=== PATIENT | female | born 1960 | race African-American/Black ===

== ENCOUNTER 2018-12-18 02:21 | Inpatient (IN) | payer OTHER ==
--- NOTE | 2018-12-18 02:40 | PDOC ---
History of Present Illness <TonoSandrita - Last Filed: 12/18/18 05:53> - General History Source: Patient Exam Limitations: No Limitations - History of Present Illness Initial Comments: 12/18/18 02:40 58YOF with h/o lumbago with chronic pain, CHF, CAD with MIx2 and AICD placement , HTN, COPD, NIDDM, anemia, left mastectomy 2/2 breast CA, and GERD who p/w fall from standing at home at about 6 pm. She notes that she is chronically unsteady on her feet d/t her chronic pain and her family member usually need to help her ambulate and do her daily activities. She was walking in the living room, lost her footing, and fell with her right leg behind her and also twisted her left ankle. She notes severe pain to her right hip and groin, and left ankle. She denies hitting her head, hurting her neck, losing consciousness, or otherwise suffering any additional injury. She has not run out of any of her normal home medications. She took Tylenol, gabapentin, and a muscle relaxer tonight after the incident (she normally takes these). She used to live here in [place] but moved to [place] and is currently only visiting family here. <ClarkeSkylar - Last Filed: 12/18/18 06:42> - General Stated Complaint: FALL Time Seen by Provider: 12/18/18 02:27 Past History <PowerSandrita - Last Filed: 12/18/18 05:53> - Past Medical History Anemia: Yes Asthma: Yes Cancer: Yes (left breast) Cardiac Disorders: Yes COPD: Yes Diabetes: Yes HTN: Yes Hypercholesterolemia: Yes - Surgical History Cardiac Surgery: Yes (stent x 1, INTERNAL DEFIB.) - Suicide/Smoking/Psychosocial Hx Smoking Status: No Smoking History: Former smoker Have you smoked in the past 12 months: No Number of Cigarettes Smoked Daily: 0 Hx Alcohol Use: No Drug/Substance Use Hx: No Substance Use Type: None Hx Substance Use Treatment: No <Skylar Clarke - Last Filed: 12/18/18 06:42> - Past Medical History Allergies/Adverse Reactions: Allergies Allergy/AdvReac Type Severity Reaction Status Date / Time prochlorperazine edisylate Allergy Intermediate Swelling Verified 12/18/18 02:51 [From Compazine] prochlorperazine maleate Allergy Intermediate Swelling Verified 12/18/18 02:51 [From Compazine] Home Medications: Ambulatory Orders Aspirin 81 mg PO DAILY 12/13/12 Carvedilol [Coreg] 3.125 mg PO BID 12/13/12 Furosemide [Lasix -] 40 mg PO BID 12/10/14 Omeprazole [Prilosec] 20 mg PO DAILY 12/10/14 Citalopram Hydrobromide [Citalopram HBr] 20 mg PO DAILY 12/18/18 Clonazepam 1 mg PO BID 12/18/18 Gabapentin 600 mg PO BID 12/18/18 Insulin (Levemir) [Levemir Flexpen -] 39 units SQ HS 12/18/18 Nitroglycerin 0.4 mg SL PRN PRN 12/18/18 Rivaroxaban [Xarelto -] 15 mg PO DAILY 12/18/18 Sacubitril/Valsartan [Entresto 24 mg-26 mg Tablet] 1 each PO BID 12/18/18 Spironolactone 12.5 mg PO DAILY 12/18/18 Tizanidine HCl 4 mg PO PRN PRN 12/18/18 Review of Systems - Review of Systems Able to Perform ROS?: Yes Comments:: 12/18/18 03:30 GEN: no fever, chills, malaise, generalized weakness, or weight change HEENT: no ear pain, sore throat, vision change, or eye pain CV: no chest pain, palpitations, lightheadedness, syncope, or edema RESP: no cough, wheezing, or SOB GI: no abdominal pain, nausea, vomiting, diarrhea, constipation, or white/black/ bloody stool : no dysuria, hematuria, incontinence, retention, bleeding, or discharge MSK: right hip and groin pain, left ankle pain NEURO: no headache, seizure, vertigo, numbness, tingling, or focal weakness PSYCH: no substance use, no behavior change SKIN: no jaundice, no rash ROS otherwise negative except as noted in HPI <Skylar Clarke - Last Filed: 12/18/18 06:42> *Physical Exam - Vital Signs Last Vital Signs Temp Pulse Resp BP Pulse Ox 99.0 F 103 H 20 140/77 98 12/18/18 02:30 12/18/18 02:30 12/18/18 02:30 12/18/18 02:30 12/18/18 02:30 <Sandrita Power - Last Filed: 12/18/18 05:53> - Vital Signs Initial Vital Signs Temp Pulse Resp BP Pulse Ox 99.0 F 103 H 20 140/77 98 12/18/18 02:30 12/18/18 02:30 12/18/18 02:30 12/18/18 02:30 12/18/18 02:30 - Physical Exam Comments: GENERAL: nontoxic but uncomfortable appearing, A/Ox4, mild distress at rest and slightly worse when moving lower extremities, answers questions appropriately, obese HEENT: PERRLA, EOMI, moist mucous membranes NECK/BACK: no midline ttp, no spinal stepoff or deformity, no hematoma, full ROM , neck supple CARDIOVASCULAR: regular rate/rhythm, normal S1S2, no MGR, strong peripheral pulses, capillary refill <2 seconds, extremities wwp, no edema LUNGS/RESPIRATORY: no respiratory distress, CTAB GI/ABDOMEN: symmetric [id number], normoactive BS, soft, no ttp, no midline pulsatile masses : no CVA tenderness EXTREMITIES: left lateral ankle ttp and developing ecchymosis/edema, significant pain with ROM, also left hip with moderate ttp overlying greater trochanter and mild pain to inguinal area, otherwise MSK with no muscle atrophy , no acute deformity SKIN: warm and dry, no pallor, no jaundice, no rash, no bruising, no skin breakdown, no cuts, no lesions NEUROLOGICAL: GCS 15, CN II-XII grossly intact, 5/5 strength proximally and distally, no facial droop <Skylar Clarke - Last Filed: 12/18/18 06:42> ED Treatment Course - LABORATORY CBC & Chemistry Diagram: 12/18/18 05:08 12/18/18 05:08 - ADDITIONAL ORDERS Additional order review: Laboratory Results 12/18/18 05:20 Urine Color Yellow Urine Appearance Cloudy Urine pH 5.0 Ur Specific [place] 1.035 Urine Protein Negative Urine Glucose (UA) 3+ H Urine Ketones Trace H Urine Blood Negative Urine Nitrite Negative Urine Bilirubin Negative Urine Urobilinogen 1.0 Ur Leukocyte Esterase Negative 12/18/18 05:08 RBC 3.52 L MCV 94.5 MCHC 33.3 RDW 13.5 D MPV 8.8 Neutrophils % 69.4 D Lymphocytes % 22.5 D Monocytes % 7.3 Eosinophils % 0.4 Basophils % 0.4 - Medications Given in the ED: ED Medications Discontinued Medications Generic Name Dose Route Start Last Admin Trade Name Simon PRN Reason Stop Dose Admin Ketorolac Tromethamine 30 mg 12/18/18 04:34 12/18/18 05:08 Toradol Injection - IM 12/18/18 04:35 Not Given ONCE ONE Morphine Sulfate 2 mg 12/18/18 05:01 12/18/18 05:08 Morphine Injection - IM 12/18/18 05:02 2 mg ONCE ONE Administration <Sandrita Power - Last Filed: 12/18/18 05:53> - LABORATORY CBC & Chemistry Diagram: 12/18/18 05:08 12/18/18 05:08 <Skylar Clarke - Last Filed: 12/18/18 06:42> Medical Decision Making - Medical Decision Making 12/18/18 05:06 58YOF patient p/w GLF with subsequent hip pain and ankle pain. Initial Vital Signs Temp Pulse Resp BP Pulse Ox 99.0 F 103 H 20 140/77 98 12/18/18 02:30 12/18/18 02:30 12/18/18 02:30 12/18/18 02:30 12/18/18 02:30 Exam: As noted in Physical Exam section. DDX IBNLT: most likely sprain/strain or contusion, less likely hip/pelvis/femur knee/ankle fxr, very unlikely hip dislocation, thigh hematoma, compartment syndrome, etc. W/U ordered: Labs as noted below EKG hip and ankle and knee XR NPO until further notice. XR Lt Foot/Ankle: distal spiral fibular fracture, nondisplaced, noncomminuted. XR Rt Hip: nothing acute XR Rt knee: nothing acute Laboratory Tests 12/18/18 12/18/18 12/18/18 05:08 05:08 05:08 WBC 9.6 RBC 3.52 L Hgb 11.1 Hct 33.3 D MCV 94.5 MCH 31.5 MCHC 33.3 RDW 13.5 D Plt Count 278 MPV 8.8 Absolute Neuts (auto) 6.7 Neutrophils % 69.4 D Lymphocytes % 22.5 D Monocytes % 7.3 Eosinophils % 0.4 Basophils % 0.4 Nucleated RBC % 0 Sodium 137 Potassium 4.1 Chloride 105 Carbon Dioxide 22 Anion Gap 10 BUN 16.8 Creatinine 1.4 H Est GFR (CKD-EPI)AfAm 48.56 Est GFR (CKD-EPI)NonAf 41.90 Random Glucose 343 H* Calcium 8.8 Total Bilirubin 0.3 AST 11 L ALT 11 L Alkaline Phosphatase 125 H Creatine Kinase 79 Troponin I < 0.02 B-Natriuretic Peptide 178.6 H Total Protein 7.1 Albumin 3.4 Urine Color Urine Appearance Urine pH Ur Specific [place] Urine Protein Urine Glucose (UA) Urine Ketones Urine Blood Urine Nitrite Urine Bilirubin Urine Urobilinogen Ur Leukocyte Esterase 12/18/18 05:20 WBC RBC Hgb Hct MCV MCH MCHC RDW Plt Count MPV Absolute Neuts (auto) Neutrophils % Lymphocytes % Monocytes % Eosinophils % Basophils % Nucleated RBC % Sodium Potassium Chloride Carbon Dioxide Anion Gap BUN Creatinine Est GFR (CKD-EPI)AfAm Est GFR (CKD-EPI)NonAf Random Glucose Calcium Total Bilirubin AST ALT Alkaline Phosphatase Creatine Kinase Troponin I B-Natriuretic Peptide Total Protein Albumin Urine Color Yellow Urine Appearance Cloudy Urine pH 5.0 Ur Specific [place] 1.035 Urine Protein Negative Urine Glucose (UA) 3+ H Urine Ketones Trace H Urine Blood Negative Urine Nitrite Negative Urine Bilirubin Negative Urine Urobilinogen 1.0 Ur Leukocyte Esterase Negative Reassessment: patient still very painful/tender, Toradol and morphine has been ordered. Vital Signs Temperature 99.0 F 12/18/18 02:30 Pulse Rate 96 H 12/18/18 06:06 Respiratory Rate 20 12/18/18 02:30 Blood Pressure 144/79 12/18/18 06:06 O2 Sat by Pulse Oximetry (%) 99 12/18/18 06:06 12/18/18 05:55 The patient is unable to weight bear d/t pain despite multiple doses analgesics at home and here. She has difficulty even letting us reposition her in bed. Microblog sent to [facility] for admission. Blank Decision to Admit order placed per ED protocol. Spoke with Cassi Linton; in agreement Pt to be admitted. Decision to Admit order corrected with Dr. Pat's name. 12/18/18 06:26 Page sent to on-call orthopedist FARHAT Adame, for Dr. Weber. Consult order placed to Dr. Weber's group. 12/18/18 06:41 I spoke with FARHAT Adame; they will kindly see the patient in the hospital. <Skylar Clarke - Last Filed: 12/18/18 06:42> *DC/Admit/Observation/Transfer - Discharge Dispostion Decision to Admit order: Yes <Sandrita Power - Last Filed: 12/18/18 05:53> - Discharge Dispostion Decision to Admit order: Yes <Skylar Clarke - Last Filed: 12/18/18 06:42> Diagnosis at time of Disposition: Impaired ambulation, Fracture of distal fibula, Knee buckling - Discharge Dispostion Condition at time of disposition: Guarded
--- NOTE | 2018-12-18 03:36 | PDOC ---
Attending Attestation - Resident Resident Name: Skylar Clarke - ED Attending Attestation I have performed the following: I have examined & evaluated the patient, The case was reviewed & discussed with the resident, I agree w/resident's findings & plan - HPI HPI: 12/18/18 05:48 Pt came from [place] 1 week ago for her granddaughter's graduation. Pt cannot walk without assistance. She is overweight. SHe has been unable to ambulate well x 2 years. She needs help doing ADLs. Pt doesn't know why she cannot bear weight well and why she is imbalanced. She was told maybe she had a CVA in the past. Pt also has an AICD that is incompatible with MRI. Pt fell today at home, after showering and walking from her niece's room. - Physicial Exam PE: 12/18/18 05:51 Pt has exquisite tenderness at the medial right knee and at the lateral distal fibula. Pt will be placed in a knee immobilizer on right and a posterior splint on the left lower leg. - Medical Decision Making 12/18/18 05:32 Pt has a minimally displaced spiral fracture of the distal fibula. 12/18/18 05:52 Pt cannot ambulate well at baseline, and now with knee giving out and left fibula fx, she will be admitted for ortho eval; pt may need rehab placement.
[2018-12-18] MEDS ORDERED: KETOROLAC TROMETHAMINE 30 MG/1 ML VIAL IM ONE (04:34)
[2018-12-18] MEDS ORDERED: KETOROLAC TROMETHAMINE 30 MG/1 ML VIAL ONE (04:56)
[2018-12-18] MEDS ORDERED: morphine CARPU-JECT 2 MG/1 ML DISP.SYRIN IM ONE (05:01)
[2018-12-18] MEDS ORDERED: MORPHINE SULFATE 2 MG/ML VIAL ONE (05:04)
[2018-12-18 05:21] LABS: HEMATOCRIT 33.3 % (32.4-45.2)
[2018-12-18 05:33] LABS: URINE APPEARANCE CLOUDY; URINE BILIRUBIN NEGATIVE (NEGATIVE); URINE COLOR YELLOW; URINE GLUCOSE (UA) 3+ (NEGATIVE); URINE KETONE TRACE (NEGATIVE); URINE LEUK ESTERASE NEGATIVE (NEGATIVE); URINE NITRITE NEGATIVE (NEGATIVE); URINE PROTEIN NEGATIVE (NEGATIVE)
[2018-12-18 05:35] LABS: BASO % 0.4 % (0-2.0); EOS % 0.4 % (0-4.5); HEMOGLOBIN 11.1 GM/dL (10.7-15.3); LYMPH % 22.5 % (8-40); MCH 31.5 pg (25.7-33.7); MCHC 33.3 g/dl (32.0-36.0); MEAN CELL VOLUME 94.5 fl (80-96); MEAN PLT VOLUME 8.8 fl (7.5-11.1); MONO % 7.3 % (3.8-10.2); NEUT % 69.4 % (42.8-82.8); PLATELET COUNT 278 K/MM3 (134-434); RBC 3.52 M/mm3 (3.60-5.2); RDW 13.5 % (11.6-15.6); WHITE BLOOD COUNT 9.6 K/mm3 (4.0-10.0)
[2018-12-18 05:58] LABS: ALBUMIN 3.4 g/dl (3.4-5.0); ALK PHOS 125 U/L (45-117); ANION GAP 10 MMOL/L (8-16); BILIRUBIN,TOTAL 0.3 mg/dL (0.2-1); BLOOD UREA NITROGEN 16.8 mg/dL (7-18); CALCIUM 8.8 mg/dL (8.5-10.1); CHLORIDE 105 mmol/L (98-107); CO2 22 mmol/L (21-32); CREATININE 1.4 mg/dL (0.55-1.3); POTASSIUM 4.1 mmol/L (3.5-5.1); SGOT/AST 11 U/L (15-37); SGPT/ALT 11 U/L (13-61); SODIUM 137 mmol/L (136-145); TOT PROT 7.1 g/dl (6.4-8.2)
[2018-12-18 05:59] LABS: GLUCOSE,RANDOM 343 mg/dL (74-106)
[2018-12-18] MEDS ORDERED: oxyCODONE HCL 5 MG TABLET PO PRN ×2 (06:31→10:21)
--- NOTE | 2018-12-18 06:31 | HP ---
CHIEF COMPLAINT: fall/pain PCP: in [place] HISTORY OF PRESENT ILLNESS: Patient is a 58 yo F with a PMHx of Lumbago w chronic pain, S CHF s/p AICD, MN x 2, HTN, DM, Anemia, L masectomy 2/2 breast ca, DVTs, PE (on Xarelto) presented after a mechanical Fall. Patient says she has recurrent falls because of chronic pain and unsteadiness in her lower extremities. She says she was walking in the house yesterday, loss balance, twisted her L ankle and fell. She presented complaining of R hip, groin and L ankle pain. In the ED, X ray revealed a distal spiral fx of the L Fibula. Ortho was called by the ED and agreed to admit the patient. Patient still complains of diffuse pain in her R hip and L ankle. She denies SOB, chest pain, nausea, vomiting, fevers, chills, palpitations, dizziness, cough. ER course was notable for: (1) Spiral fx of L fibula on XRAY (2) Glucose 343 Recent Travel: from [place] PAST MEDICAL HISTORY: per HPI PAST SURGICAL HISTORY: L masectomy 2007 Social History: Smoking: denies. former smoker quit 2006 Alcohol: denies Drugs: denies Family History: Mother HTN, DM Allergies prochlorperazine edisylate [From Compazine] Allergy (Intermediate, Verified 02:51) Swelling prochlorperazine maleate [From Compazine] Allergy (Intermediate, Verified 02:51) Swelling HOME MEDICATIONS: Home Medications Medication Instructions Recorded Aspirin 81 mg PO DAILY 12/13/12 Carvedilol [Coreg] 3.125 mg PO BID 12/13/12 Furosemide [Lasix -] 40 mg PO BID 12/10/14 Omeprazole [Prilosec] 20 mg PO DAILY 12/10/14 Citalopram Hydrobromide 20 mg PO DAILY 12/18/18 [Citalopram HBr] Clonazepam 1 mg PO BID 12/18/18 Gabapentin 600 mg PO BID 12/18/18 Insulin (Levemir) [Levemir Flexpen 10 units SQ BID 12/18/18 -] Nitroglycerin 0.4 mg SL PRN PRN 12/18/18 Rivaroxaban [Xarelto -] 15 mg PO DAILY 12/18/18 Sacubitril/Valsartan [Entresto 24 1 each PO BID 12/18/18 mg-26 mg Tablet] Spironolactone 12.5 mg PO DAILY 12/18/18 Tizanidine HCl 4 mg PO PRN PRN 12/18/18 REVIEW OF SYSTEMS CONSTITUTIONAL: Absent: fever, chills, diaphoresis, generalized weakness, malaise, loss of appetite, weight change HEENT: Absent: rhinorrhea, nasal congestion, throat pain, throat swelling, difficulty swallowing, mouth swelling, ear pain, eye pain, visual changes CARDIOVASCULAR: Absent: chest pain, syncope, palpitations, irregular heart rate, lightheadedness , peripheral edema RESPIRATORY: Absent: cough, shortness of breath, dyspnea with exertion, orthopnea, wheezing, stridor, hemoptysis GASTROINTESTINAL: Absent: abdominal pain, abdominal distension, nausea, vomiting, diarrhea, constipation, melena, hematochezia GENITOURINARY: Absent: dysuria, frequency, urgency, hesitancy, hematuria, flank pain, genital pain MUSCULOSKELETAL: back pain Absent: myalgia, arthralgia, joint swelling, neck pain SKIN: Absent: rash, itching, pallor HEMATOLOGIC/IMMUNOLOGIC: Absent: easy bleeding, easy bruising, lymphadenopathy, frequent infections ENDOCRINE: Absent: unexplained weight gain, unexplained weight loss, heat intolerance, cold intolerance NEUROLOGIC: Absent: headache, focal weakness or paresthesias, dizziness, unsteady gait, seizure, mental status changes, bladder or bowel incontinence PSYCHIATRIC: Absent: anxiety, depression, suicidal or homicidal ideation, hallucinations. PHYSICAL EXAMINATION Vital Signs - 24 hr 12/18/18 12/18/18 02:30 06:06 Temperature 99.0 F Pulse Rate 103 H Pulse Rate [ 96 H Radial] Respiratory 20 Rate Blood Pressure 140/77 Blood Pressure 144/79 [Right Arm] O2 Sat by Pulse 98 99 Oximetry (%) GENERAL: Awake, alert, and fully oriented, in no acute distress. EYES: Pupils equal, round and reactive to light, extraocular movements intact, sclera anicteric, conjunctiva clear. EARS, NOSE, THROAT: oropharynx clear without exudates. Moist mucous membranes. NECK:supple without lymphadenopathy, JVD, or masses. LUNGS: Breath sounds equal, clear to auscultation bilaterally. No wheezes, and no crackles. HEART: Regular rate and rhythm, normal S1 and S2 without murmur, rub or gallop. ABDOMEN: Soft, nontender, not distended, normoactive bowel sounds, no guarding, no rebound, no masses. MUSCULOSKELETAL: Restricted ROM in LLE. especially near L ankle. patient says she is unable to move her Leg due to pain. Refusing different tests. diffuse tenderness to palpation. Brace placed on RLE. UPPER EXTREMITIES: 2+ pulses, warm, well-perfused. No peripheral edema. LOWER EXTREMITIES: 2+ pulses, warm, well-perfused. NEUROLOGICAL: Cranial nerves II-XII intact. . Laboratory Results - last 24 hr 12/18/18 12/18/18 12/18/18 05:08 05:08 05:08 WBC 9.6 RBC 3.52 L Hgb 11.1 Hct 33.3 D MCV 94.5 MCH 31.5 MCHC 33.3 RDW 13.5 D Plt Count 278 MPV 8.8 Absolute Neuts (auto) 6.7 Neutrophils % 69.4 D Lymphocytes % 22.5 D Monocytes % 7.3 Eosinophils % 0.4 Basophils % 0.4 Nucleated RBC % 0 Sodium 137 Potassium 4.1 Chloride 105 Carbon Dioxide 22 Anion Gap 10 BUN 16.8 Creatinine 1.4 H Est GFR (CKD-EPI)AfAm 48.56 Est GFR (CKD-EPI)NonAf 41.90 Random Glucose 343 H* Calcium 8.8 Total Bilirubin 0.3 AST 11 L ALT 11 L Alkaline Phosphatase 125 H Creatine Kinase 79 Troponin I < 0.02 B-Natriuretic Peptide 178.6 H Total Protein 7.1 Albumin 3.4 Urine Color Urine Appearance Urine pH Ur Specific [place] Urine Protein Urine Glucose (UA) Urine Ketones Urine Blood Urine Nitrite Urine Bilirubin Urine Urobilinogen Ur Leukocyte Esterase 12/18/18 05:20 WBC RBC Hgb Hct MCV MCH MCHC RDW Plt Count MPV Absolute Neuts (auto) Neutrophils % Lymphocytes % Monocytes % Eosinophils % Basophils % Nucleated RBC % Sodium Potassium Chloride Carbon Dioxide Anion Gap BUN Creatinine Est GFR (CKD-EPI)AfAm Est GFR (CKD-EPI)NonAf Random Glucose Calcium Total Bilirubin AST ALT Alkaline Phosphatase Creatine Kinase Troponin I B-Natriuretic Peptide Total Protein Albumin Urine Color Yellow Urine Appearance Cloudy Urine pH 5.0 Ur Specific [place] 1.035 Urine Protein Negative Urine Glucose (UA) 3+ H Urine Ketones Trace H Urine Blood Negative Urine Nitrite Negative Urine Bilirubin Negative Urine Urobilinogen 1.0 Ur Leukocyte Esterase Negative ASSESSMENT/PLAN: 58 yo F with a PMHx of Lumbago w chronic pain, S CHF s/p AICD, MN x 2, HTN, DM, Anemia, L masectomy 2/2 breast ca, DVTs, PE (on Xarelto) presented after a mechanical Fall. #L Fibula Spiral Fx s/p Mechanical Fall -not suspicious for pre-syncope/syncope -Ortho consulted: Dr. Weber -NPO. Change Diet if no sx -PT/INR, type and screen -pain control w/ Percocet PRN -held AM dose of ASA, Xarelto if decision of sx is made. CONTINUE if no surgery planned. -PT #Uncontrolled DM -patient says her recent A1c is 11 (last week in [place]). She says it improved from before. -BGM -cont Levemir 39 U at night. -Patient also takes 10 Humalog TID which is held. -SSI #S CHF -says her EF is <25% -not in exacerbation -cont home meds. Coreg 3.25 BID, entresto, spironolactone 12.5 #Hx of PE, DVTs -on xarelto 15mg -WILL hold AM dose. Restart if no surgical intervention planned -Cont Lasix 40mg BID #HTN/CAD -HELD ASA 81mg. -cont if no sx intervention planned #Dvt ppx -SCDs #FEN -no iv fluids -monitor -NPO for now dispo: med-surge Visit type - Emergency Visit Emergency Visit: Yes ED Registration Date: 12/18/18 Care time: The patient presented to the Emergency Department on the above date and was hospitalized for further evaluation of their emergent condition. - New Patient This patient is new to me today: Yes Date on this admission: 12/24/18 - Critical Care Critical Care patient: No
--- NOTE | 2018-12-18 06:45 | PN ---
Teaching Attending Note Name of Resident: Yomaira Linton ATTENDING PHYSICIAN STATEMENT I saw and evaluated the patient. I reviewed the resident's note and discussed the case with the resident. I agree with the resident's findings and plan as documented. SUBJECTIVE: Seen and examined; please refer to resident note for further historical information. Briefly, this is a 58 y/o female with a complex PMH who [place] out of state and is in town for family event presents to ER following a fall that appears mechanical (she is, per the patient, constantly unsteady on her feet and this was resultant from such an issue). She denies any presyncopal or syncopal elements and denies any LOC, visual changes, mental status changes, etc. No focal neuro sx. She was found to have a spiral fx of the R-fibula in the ER and was placed in knee immobilizer. Orthopedic consultation pending. She was given a 1x dose of oxycodone; medicine was asked to admit for intractable pain, inability to ambulate. 10 sys ROS done and negative aside from HPI PMH, PSH, FH, SH reviewed Home Medications Medication Instructions Recorded Aspirin 81 mg PO DAILY 12/13/12 Carvedilol [Coreg] 3.125 mg PO BID 12/13/12 Furosemide [Lasix -] 40 mg PO BID 12/10/14 Omeprazole [Prilosec] 20 mg PO DAILY 12/10/14 Citalopram Hydrobromide 20 mg PO DAILY 12/18/18 [Citalopram HBr] Clonazepam 1 mg PO BID 12/18/18 Gabapentin 600 mg PO BID 12/18/18 Insulin (Levemir) [Levemir Flexpen 39 units SQ HS 12/18/18 -] Nitroglycerin 0.4 mg SL PRN PRN 12/18/18 Rivaroxaban [Xarelto -] 15 mg PO DAILY 12/18/18 Sacubitril/Valsartan [Entresto 24 1 each PO BID 12/18/18 mg-26 mg Tablet] Spironolactone 12.5 mg PO DAILY 12/18/18 Tizanidine HCl 4 mg PO PRN PRN 12/18/18 OBJECTIVE: VS, labs, imaging reviewed Normal mood, appropriate behavior NC AT EOMI PERRLA Lungs CTAB, w/ sym exp Knee in immobilizer; no swelling, +pulses PT/DP and neurovascularly intact CN2-12 wnl, no fnd Normal mood, appropriate behavior EKG reviewed XRs reviewed; discussed with ER MD. Awaiting final report ASSESSMENT AND PLAN: Patient presents with: 1) Fall 2) Spiral fx fibula She will be admitted to the medicine service for pain control and orthopedic assessment. Due to positioning we can consider checking sitting/lying orthostatic VS, but if + would be very cautious with fluids given her poor cardiovascular status. Treatment of the fx deferred entirely to orthopedics but do agree with knee immobilizer. She is unsteady and very well may need rehab but must consider that she is out of state. Should discuss with her and her family regarding overall wishes for this; her instability is chronic. May be worthwhile to discuss with her home physicians. In terms of the fall, it wasn't syncope/presyncope. I don't see a need to emergently interrogate her pacemaker. From what she described, it was resultant from her chronic symptoms. We will place her on fall precautions, etc. Her chronic problems include -DVT
[2018-12-18] MEDS ORDERED: INSULIN (NOVOLOG) ASPART 100 UNITS/ML 10ML VIAL ONE (06:59)
[2018-12-18] MEDS: INSULIN SLIDING SCALE (NOVOLOG) 1 VIAL SQ SCH ×3 (07:03→17:15)
[2018-12-18] MEDS ORDERED: FUROSEMIDE 40 MG TABLET (FP) ONE (08:11)
[2018-12-18] MEDS: FUROSEMIDE 40 MG TABLET (FP) PO SCH ×2 (08:14→14:42)
[2018-12-18] MEDS: GABAPENTIN 300 MG CAPSULE (FP) PO SCH ×2 (09:31→21:40)
[2018-12-18] MEDS: PANTOPRAZOLE 20 MG TABLET (FP) PO SCH (09:31)
[2018-12-18] MEDS: CARVEDILOL 3.125 MG TABLET (FP) PO SCH ×2 (09:33→21:40)
[2018-12-18] MEDS: SPIRONOLACTONE 25 MG TABLET (FP) PO SCH (09:33)
[2018-12-18 10:00] LABS: INR 1.01 (0.83-1.09); PROTHROMBIN TIME (PATIENT) 11.9 SEC (9.7-13.0)
[2018-12-18] MEDS ORDERED: oxyCODONE HCL 5 MG TABLET PO ONE (10:20)
--- NOTE | 2018-12-18 10:22 | HOSP ---
Subjective - Review of Symptoms Subjective: c/o pain not improving with pain medications. states both legs hurt but the L leg is worse than the R. had cardiac cath about 2 years ago, did see a blockage but was medically managed and no stent was placed. denies Cp, SOB, fever, chills , N/V/C/D Current Medications Generic Name Dose Route Start Last Admin Trade Name Freq PRN Reason Stop Dose Admin Carvedilol 3.125 mg 12/18/18 10:00 12/18/18 09:33 Coreg - PO 3.125 mg BID [facility] Administration Citalopram Hydrobromide 20 mg 12/18/18 10:00 Celexa - PO DAILY [facility] Furosemide 40 mg 12/18/18 07:15 12/18/18 08:14 Lasix - PO 40 mg BIDLASIX [facility] Administration Gabapentin 600 mg 12/18/18 10:00 12/18/18 09:31 Neurontin - PO 600 mg BID [facility] Administration Insulin Aspart 1 vial 12/18/18 06:45 12/18/18 07:03 Novolog Vial Sliding Scale - SQ 8 units Q6HPO [facility] Administration Protocol Insulin Detemir 39 units 12/18/18 22:00 Levemir Vial SQ HS [facility] Oxycodone HCl 5 mg 12/18/18 10:20 Roxicodone - PO 12/18/18 10:21 ONCE ONE Oxycodone HCl 10 mg 12/18/18 10:21 Roxicodone - PO Q4H PRN PAIN LEVEL 6-10 Pantoprazole Sodium 20 mg 12/18/18 10:00 12/18/18 09:31 Protonix - PO 20 mg DAILY [facility] Administration Sacubitril/Valsartan 1 tab 12/18/18 10:00 Entresto 24 Mg-26 Mg Tablet PO BID [facility] Spironolactone 12.5 mg 12/18/18 10:00 12/18/18 09:33 Aldactone - PO 12.5 mg DAILY [facility] Administration Last Vital Signs Temp Pulse Resp BP Pulse Ox 98.3 F 96 H 18 128/69 98 12/18/18 09:24 12/18/18 09:24 12/18/18 09:24 12/18/18 09:24 12/18/18 08:22 General tearful due to pain CV S1 S2 RRR +murmur lungs CTA B/L no wheezing/rales/rhonchi Abdomen soft NT/ND obese Extremities LLE pain and swelling A/P 58YOF with h/o lumbago with chronic pain, CHF, CAD with MIx2 and AICD placement , HTN, COPD, NIDDM, anemia, left mastectomy 2/2 breast CA, and GERD who p/w fall from standing at home and found to have a distal fibula fracture 1. L Distal fibular fracture- due to mechanical fall. will place splint on leg and will need to be NWB and have imaging done in the future and then determine if surgery will b necessary pending how it heals. in the meantime will need to control pain. increase to morphine 4mg IV prn and po percocet and inform will try to wean off IV medication for pain as tolerated. will need PT assessment to show how to ambulate on crutches prior to leaving. 2. DIA vs CKD- unknown baseline. last hospitalization Cr was 1.3 and this may be baseline. hesitant to give IVF with reports her severe systolic CHF. will continue with meds for now and evaluate if medications need to be adjusted. already received this AM medication 3. DM- uncontrolled but as per pt has been improving with medication adjustment. cont with BGM and iss 4. Systolic CHF s/p AICD- cont home management 5. CAD- with residual disease, with recent cath that was not amenable to stenting. cont with treatment 6. breast ca- outpatient management 7. DVT ppx- start hep sq 8. will need to control pain and ensure patient is able to ambulate with crutches prior to discharge Physical Examination Vital Signs: Vital Signs Temperature 98.3 F 12/18/18 09:24 Pulse Rate 96 H 12/18/18 09:24 Respiratory Rate 18 12/18/18 09:24 Blood Pressure 128/69 12/18/18 09:24 O2 Sat by Pulse Oximetry (%) 98 12/18/18 08:22 Labs: CBC, BMP 12/18/18 05:08 12/18/18 05:08
[2018-12-18] MEDS ORDERED: morphine CARPU-JECT 4 MG/1 ML DISP.SYRIN IVPUSH PRN (10:26)
[2018-12-18] MEDS: SACUBITRIL/VALSARTAN 24 MG-26 MG TABLET PO SCH ×2 (12:00→21:40)
[2018-12-18] MEDS: CITALOPRAM HYDROBROMIDE 20 MG TABLET (FP) PO SCH (12:00)
[2018-12-18] MEDS: morphine SULFATE 4 MG/ML VIAL IVPUSH PRN ×3 (12:12→21:50)
[2018-12-18] MEDS ORDERED: PT OWN MED DRAWER 7, Y5N ONE ×2 (13:09→21:35)
--- NOTE | 2018-12-18 14:02 | CON.ORTH ---
Consult Reason for Consultation:: left ankle fx, right knee pain s/p fall - Past Medical History ...LMP: 02/03/08 ...: No - Alcohol/Substance Use Hx Alcohol Use: No - Smoking History Smoking history: Former smoker Have you smoked in the past 12 months: No Aproximately how many cigarettes per day: 0 Home Medications - Allergies Allergies/Adverse Reactions: Allergies Allergy/AdvReac Type Severity Reaction Status Date / Time prochlorperazine edisylate Allergy Intermediate Swelling Verified 12/18/18 02:51 [From Compazine] prochlorperazine maleate Allergy Intermediate Swelling Verified 12/18/18 02:51 [From Compazine] - Home Medications Home Medications: Ambulatory Orders Aspirin 81 mg PO DAILY 12/13/12 Carvedilol [Coreg] 3.125 mg PO BID 12/13/12 Furosemide [Lasix -] 40 mg PO BID 12/10/14 Omeprazole [Prilosec] 20 mg PO DAILY 12/10/14 Citalopram Hydrobromide [Citalopram HBr] 20 mg PO DAILY 12/18/18 Clonazepam 1 mg PO BID 12/18/18 Gabapentin 600 mg PO BID 12/18/18 Insulin (Levemir) [Levemir Flexpen -] 39 units SQ HS 12/18/18 Nitroglycerin 0.4 mg SL PRN PRN 12/18/18 Rivaroxaban [Xarelto -] 15 mg PO DAILY 12/18/18 Sacubitril/Valsartan [Entresto 24 mg-26 mg Tablet] 1 each PO BID 12/18/18 Spironolactone 12.5 mg PO DAILY 12/18/18 Tizanidine HCl 4 mg PO PRN PRN 12/18/18 Family Disease History - Family Disease History Family Disease History: Heart Disease: Mother (PR) Physical Exam for Ortho Vital Signs: Vital Signs Temperature 98.3 F 12/18/18 09:24 Pulse Rate 96 H 12/18/18 09:24 Respiratory Rate 18 12/18/18 09:24 Blood Pressure 128/69 12/18/18 09:24 O2 Sat by Pulse Oximetry (%) 98 12/18/18 08:22 Labs: CBC, BMP 12/18/18 05:08 12/18/18 05:08 INR, PTT INR 1.01 (0.83-1.09) 12/18/18 08:30 - Lower Extremity Knee: Yes: Right, Pain, Other (minimal swelling, + ttp , rom 0-80, calf soft, nt , nvi) Ankle: Yes: Left, Limited ROM, Pain, Swelling, Tenderness, Other (nvi) Imaging - Results X-ray: Report Reviewed, Image Reviewed Assessment/Plan 58 yo F with a PMHx of chronic pain, S CHF s/p AICD, PR x 2, HTN, DM, Anemia, L masectomy 2/2 breast ca, DVTs, PE (on Xarelto) presented after a mechanical Fall. Patient says she has recurrent falls because of chronic pain and unsteadiness in her lower extremities. She says she was walking in the house yesterday, loss balance, twisted her L ankle and fell. She presented complaining of R hip, groin and L ankle pain. In the ED, X ray revealed a distal spiral fx of the L Fibula. She was a limited ambulator prior to fall. Pt is visiting from [place]. a/p- left nondisplaced distal fibula, right knee contusion No surgical intervention at this time well padded splint applied to left ankle strict elevation PT eval, NWB LLE, WBAT RLE pain control ok to d/c from ortho pov f/u in the office next week d/w Dr. Hendrickson
[2018-12-18] MEDS: HEPARIN NA (PORCINE) 5,000 UNITS/ML 1ML VIAL SQ SCH ×2 (14:43→21:40)
[2018-12-18] MEDS: oxyCODONE HCL 5 MG TABLET PO PRN (14:45)
[2018-12-18] MEDS: INSULIN (LEVEMIR) 100 UNITS/ML UNITS SQ SCH (21:41)
[2018-12-19] MEDS: INSULIN SLIDING SCALE (NOVOLOG) 1 VIAL SQ SCH ×4 (00:21→17:00)
[2018-12-19] MEDS: oxyCODONE HCL 5 MG TABLET PO PRN ×4 (01:27→20:15)
[2018-12-19] MEDS: morphine SULFATE 4 MG/ML VIAL IVPUSH PRN ×2 (06:08→22:29)
[2018-12-19] MEDS: FUROSEMIDE 40 MG TABLET (FP) PO SCH ×2 (06:09→13:45)
[2018-12-19] MEDS: HEPARIN NA (PORCINE) 5,000 UNITS/ML 1ML VIAL SQ SCH (06:09)
[2018-12-19 07:43] LABS: BASO % 0.4 % (0-2.0); EOS % 1.1 % (0-4.5); HEMATOCRIT 31.6 % (32.4-45.2); HEMOGLOBIN 10.6 GM/dL (10.7-15.3); LYMPH % 26.2 % (8-40); MCH 31.6 pg (25.7-33.7); MCHC 33.5 g/dl (32.0-36.0); MEAN CELL VOLUME 94.4 fl (80-96); MEAN PLT VOLUME 8.9 fl (7.5-11.1); MONO % 7.6 % (3.8-10.2); NEUT % 64.7 % (42.8-82.8); RBC 3.35 M/mm3 (3.60-5.2); RDW 13.4 % (11.6-15.6); WHITE BLOOD COUNT 7.3 K/mm3 (4.0-10.0)
[2018-12-19 08:12] LABS: ALBUMIN 3.3 g/dl (3.4-5.0); BILIRUBIN,TOTAL 0.6 mg/dL (0.2-1); BLOOD UREA NITROGEN 17.8 mg/dL (7-18); CALCIUM 8.8 mg/dL (8.5-10.1); CREATININE 0.9 mg/dL (0.55-1.3); MAGNESIUM 1.9 mg/dL (1.8-2.4); PHOSPHOROUS 4.2 mg/dL (2.5-4.9); POTASSIUM 3.7 mmol/L (3.5-5.1)
[2018-12-19 08:52] LABS: PLATELET COUNT 259 K/MM3 (134-434)
[2018-12-19] MEDS ORDERED: PT OWN MED DRAWER 7, Y5N ONE (09:13)
[2018-12-19] MEDS: GABAPENTIN 300 MG CAPSULE (FP) PO SCH ×2 (09:17→21:04)
[2018-12-19] MEDS: PANTOPRAZOLE 20 MG TABLET (FP) PO SCH (09:17)
[2018-12-19] MEDS: SPIRONOLACTONE 25 MG TABLET (FP) PO SCH (09:17)
[2018-12-19] MEDS: CARVEDILOL 3.125 MG TABLET (FP) PO SCH ×2 (09:17→21:04)
[2018-12-19] MEDS: SACUBITRIL/VALSARTAN 24 MG-26 MG TABLET PO SCH ×2 (09:18→21:05)
[2018-12-19] MEDS: CITALOPRAM HYDROBROMIDE 20 MG TABLET (FP) PO SCH (09:18)
[2018-12-19] MEDS ORDERED: RIVAROXABAN 20 MG TABLET PO SCH (10:00)
[2018-12-19] MEDS: ASPIRIN 81 MG CHEWABLE TABLETS PO SCH (10:10)
--- NOTE | 2018-12-19 10:12 | PN ---
Physical Exam: SUBJECTIVE: Patient seen and examined at bedside. Last night required 10mg roxicodone, 4mg morphine for pain control. Today, c/o generalized pain in LLE. OBJECTIVE: Vital Signs Period Temp Pulse Resp BP Sys/Massey Pulse Ox Last 24 Hr 98.4 F-98.5 F 91-92 14-20 98-124/51-70 98 GENERAL: The patient is AAO x3. in NAD HEAD: Normal with no signs of trauma. EYES: PERRL, extraocular movements intact, sclera anicteric, conjunctiva clear. ENT: Ears normal, nares patent, oropharynx clear without exudates, moist mucous membranes. NECK: Trachea midline,supple. LUNGS: Breath sounds equal, clear to auscultation bilaterally, no wheezes, no crackles, no accessory muscle use. HEART: Regular rate and rhythm, S1, S2 without murmur, rub or gallop. ABDOMEN: Soft, obese, nontender, nondistended, normoactive bowel sounds EXTREMITIES: +LLE - splinted, wrapped. elevated NEUROLOGICAL: Cranial nerves II through XII grossly intact. PSYCH: Normal mood, normal affect. SKIN: Warm, dry, normal turgor Laboratory Results 12/19/18 12/19/18 12/19/18 06:01 06:30 06:30 WBC 7.3 Hgb 10.6 L Hct 31.6 L Plt Count 259 Sodium 139 Potassium 3.7 Chloride 107 Carbon Dioxide 25 POC Glucometer 192 Random Glucose 180 H Calcium 8.8 AST 10 L ALT 12 L Alkaline Phosphatase 129 H Albumin 3.3 L ASSESSMENT/PLAN: 58 y/o F with PMH lumbago with chronic pain, systolic CHF, CAD, NV x 2, s/p ICD , COPD, IDDM, anemia, L mastectomy 2/2 breast CA, GERD, hx PE/DVT who presented to the ED for fall at home and was found to have a L distal fibular fx. #L distal fibular fx s/p fall -as per ortho, no sx intervention at this time -c/w padded splint on L ankle, elevation, NWB LLE. WBAT RLE -awaiting PT eval to determine subacute rehab status. d/w case management pt from [place]. Would like to return if possible but amenable to [facility] in area if needed -pain control: morphine 4mg IVP q4h PRN, roxicodone 10mg PO q4h PRN. wean off IV meds #IDDM -c/w levemir 39u sq qHS -ISS, BGM ACHS #systolic CHF s/p ICD -EF 2014 21.8% -c/w coreg, lasix, entresto, aldactone #CAD, MIx2 -c/w asa #COPD -currently not in exacerbation -can add nebs if needed #GERD -c/w protonix #hx DVT/PE -c/w xarelto as pt not for surgical intervention at this time. #DIA vs. CKD - resolved #F/E/N avoid IVF as systolic CHF continue to follow lytes diabetic/sodium controlled diet #PPX DVT: on xarelto GI: on protonix #Dispo cont'd monitoring on med-surg awaiting PT eval, determination of subacute rehab. pt would like to stay in [place] for [facility] however is amenable to staying in [facility] based on my discussion. await CM Visit type - Emergency Visit Emergency Visit: No - New Patient This patient is new to me today: Yes Date on this admission: 12/19/18 - Critical Care Critical Care patient: No
--- NOTE | 2018-12-19 11:20 | PN ---
Teaching Attending Note Name of Resident: Adriana Virk ATTENDING PHYSICIAN STATEMENT I saw and evaluated the patient. I reviewed the resident's note and discussed the case with the resident. I agree with the resident's findings and plan as documented. SUBJECTIVE:states pain is controlled with current pain regimen. states she been very weak at home and does not feel like she will be able to manage with crutches. denies CP, SOB, fever, chills, N/V/C/D OBJECTIVE: Last Vital Signs Temp Pulse Resp BP Pulse Ox 98.5 F 91 H 15 124/70 98 12/19/18 07:43 12/19/18 09:22 12/19/18 09:22 12/19/18 09:22 12/18/18 21:00 General NAD CV S1 S2 RRR +murmur lungs CTA B/L no wheezing/rales/rhonchi Abdomen soft NT/ND obese Extremities LLE pain in soft cast A/P 58YOF with h/o lumbago with chronic pain, CHF, CAD with MIx2 and AICD placement , HTN, COPD, NIDDM, anemia, left mastectomy 2/2 breast CA, and GERD who p/w fall from standing at home and found to have a distal fibula fracture 1. L Distal fibular fracture- due to mechanical fall. splint in place. will need NWB for several weeks then follow up with ortho for repeat imaging to assess if healing ok. due to generalized weakness which patient has been using multiple people to help her ambulate prior to this event will unlikely be able to manage on crutches going forward. will benefit from [facility] which patient is agreeable. will d/w SW. in meantime discussed pain plan with patient to utilize less IV pain medication over the next 24H.official PT eval tomorrow as it is a weekend 2. DIA -now resolved. 3. DM- uncontrolled but as per pt has been improving with medication adjustment. cont with BGM and iss 4. Systolic CHF s/p AICD- cont home management 5. CAD- with residual disease, with recent cath that was not amenable to stenting. cont with treatment 6. breast ca- outpatient management 7. Hx of DVT- on xarelto. as per pt needs lifelong anticoagulation 8. breast ca s/o L masectomy 9. DVT ppx- xarelto 10. PT assessment. will need [facility] on discharge
[2018-12-19] MEDS ORDERED: INSULIN (NOVOLOG) ASPART 100 UNITS/ML 10ML VIAL ONE (11:30)
[2018-12-19] MEDS: RIVAROXABAN 15 MG TABLET PO SCH (17:00)
[2018-12-19] MEDS: INSULIN (LEVEMIR) 100 UNITS/ML UNITS SQ SCH (21:06)
--- NOTE | 2018-12-20 00:29 | EKG ---
Test Reason : Blood Pressure : / mmHG Vent. Rate : 098 BPM Atrial Rate : 098 BPM P-R Int : 154 ms QRS Dur : 088 ms QT Int : 396 ms P-R-T Axes : 045 -41 082 degrees QTc Int : 505 ms NORMAL SINUS RHYTHM LEFT AXIS DEVIATION SEPTAL INFARCT , AGE UNDETERMINED PROLONGED QT ABNORMAL ECG WHEN COMPARED WITH ECG OF 11-DEC-2014 03:50, PREMATURE VENTRICULAR COMPLEXES ARE NO LONGER PRESENT SEPTAL INFARCT IS NOW PRESENT Confirmed by MD Deon, Micky ([id number]) on 12/20/2018 12:29:00 AM Referred By: Confirmed By:Micky Chavarria MD
[2018-12-20] MEDS: INSULIN SLIDING SCALE (NOVOLOG) 1 VIAL SQ SCH ×4 (00:42→18:05)
[2018-12-20] MEDS: oxyCODONE HCL 5 MG TABLET PO PRN ×4 (05:34→21:01)
[2018-12-20] MEDS: FUROSEMIDE 40 MG TABLET (FP) PO SCH ×2 (05:35→13:15)
[2018-12-20] MEDS: morphine SULFATE 4 MG/ML VIAL IVPUSH PRN ×2 (07:05→11:09)
--- NOTE | 2018-12-20 08:39 | PN ---
Progress Note (short form) - Note Progress Note: Ortho Pt seen and examined s/p left distal fibula fx, right knee contusion. Right knee is feeling much better. Selected Entries 12/20/18 05:20 Temperature 98.8 F Pulse Rate 90 Respiratory 18 Rate Blood Pressure 90/54 L right knee- no swelling, minimal ttp, incr rom, nvi left ankle-splint intact, nvi a/p PT eval NWB LLE WBAT RLE elevation ok to d/c from ortho pov SNF placement f/u in 7- for repeat xrays
[2018-12-20] MEDS ORDERED: PT OWN MED DRAWER 7, Y5N ONE (10:01)
[2018-12-20] MEDS: CARVEDILOL 3.125 MG TABLET (FP) PO SCH ×2 (10:02→21:01)
[2018-12-20] MEDS: GABAPENTIN 300 MG CAPSULE (FP) PO SCH ×2 (10:02→21:01)
[2018-12-20] MEDS: ASPIRIN 81 MG CHEWABLE TABLETS PO SCH (10:03)
[2018-12-20] MEDS: PANTOPRAZOLE 20 MG TABLET (FP) PO SCH (10:05)
[2018-12-20] MEDS: SPIRONOLACTONE 25 MG TABLET (FP) PO SCH (11:13)
[2018-12-20] MEDS: SACUBITRIL/VALSARTAN 24 MG-26 MG TABLET PO SCH ×2 (11:16→21:04)
[2018-12-20] MEDS: CITALOPRAM HYDROBROMIDE 20 MG TABLET (FP) PO SCH (11:17)
[2018-12-20] MEDS ORDERED: INSULIN (NOVOLOG) ASPART 100 UNITS/ML 10ML VIAL ONE (12:51)
--- NOTE | 2018-12-20 14:50 | PN ---
Teaching Attending Note Name of Resident: Lupe Guzman ATTENDING PHYSICIAN STATEMENT I saw and evaluated the patient. I reviewed the resident's note and discussed the case with the resident. I agree with the resident's findings and plan as documented. SUBJECTIVE:states pain is being controlled by current pain regimen. denies CP, SOB, fever, chills, N/v/C/D OBJECTIVE: Last Vital Signs Temp Pulse Resp BP Pulse Ox 98.8 F 93 H 18 116/58 L 98 12/20/18 14:16 12/20/18 14:16 12/20/18 14:16 12/20/18 14:16 12/20/18 09:00 General NAD Extremities LLE pain in soft cast A/P 58YOF with h/o lumbago with chronic pain, CHF, CAD with MIx2 and AICD placement , HTN, COPD, NIDDM, anemia, left mastectomy 2/2 breast CA, and GERD who p/w fall from standing at home and found to have a distal fibula fracture 1. L Distal fibular fracture- due to mechanical fall. splint in place. will need NWB for several weeks then follow up with ortho for repeat imaging to assess if healing ok. due to generalized weakness which patient has been using multiple people to help her ambulate prior to this event will unlikely be able to manage on crutches/RW going forward. will benefit from [facility] which patient is agreeable. pain improving. will need outpatient workup to determine cause of pathological fracture 2. DIA -now resolved. 3. DM- uncontrolled but as per pt has been improving with medication adjustment. overall improved. cont with BGM and iss 4. Systolic CHF s/p AICD- cont home management 5. CAD- with residual disease, with recent cath that was not amenable to stenting. cont with treatment 6. breast ca- outpatient management 7. Hx of DVT- on xarelto. as per pt needs lifelong anticoagulation 8. breast ca s/o L masectomy 9. DVT ppx- xarelto 10. will need [facility]. MATT to be sent today. will await bed availability and auth. medically optimized for discharge
--- NOTE | 2018-12-20 15:07 | PN ---
Physical Exam: SUBJECTIVE: Patient seen and examined at bedside. pt expressed some pain in the L ankle. pt stated that pain is improving. OBJECTIVE: Vital Signs Period Temp Pulse Resp BP Sys/Massey Pulse Ox Last 24 Hr 98.8 F-99.3 F 90-99 16-20 90-124/50-70 98-98 GENERAL: The patient is awake, alert, and fully oriented, in no acute distress. LUNGS: Breath sounds equal, clear to auscultation bilaterally, no wheezes, no crackles, no accessory muscle use. HEART: Regular rate and rhythm, S1, S2 without murmur ABDOMEN: Soft, nontender, nondistended, normoactive bowel sounds EXTREMITIES: 2+ pulses, warm, well-perfused, no edema, L leg in splint PSYCH: Normal mood, normal affect. SKIN: Warm, dry, normal turgor, no rashes or lesions noted Laboratory Results - last 24 hr 12/19/18 12/19/18 12/20/18 16:20 20:55 00:39 POC Glucometer 212 220 236 12/20/18 12/20/18 05:38 12:01 POC Glucometer 130 198 Active Medications Aspirin (Asa -) 81 mg PO DAILY [facility] Last Admin: 12/20/18 10:03 Dose: 81 mg Carvedilol (Coreg -) 3.125 mg PO BID [facility] Last Admin: 12/20/18 10:02 Dose: 3.125 mg Citalopram Hydrobromide (Celexa -) 20 mg PO DAILY [facility] Last Admin: 12/20/18 11:17 Dose: 20 mg Furosemide (Lasix -) 40 mg PO BIDLASIX [facility] Last Admin: 12/20/18 13:15 Dose: 40 mg Gabapentin (Neurontin -) 600 mg PO BID [facility] Last Admin: 12/20/18 10:02 Dose: 600 mg Insulin Aspart (Novolog Vial Sliding Scale -) 1 vial SQ Q6HPO [facility]; Protocol Last Admin: 12/20/18 12:56 Dose: 2 units Insulin Detemir (Levemir Vial) 39 units SQ HS [facility] Last Admin: 12/19/18 21:06 Dose: 39 units Oxycodone HCl (Roxicodone -) 10 mg PO Q4H PRN PRN Reason: PAIN LEVEL 1 - 3 Last Admin: 12/20/18 12:54 Dose: 10 mg Pantoprazole Sodium (Protonix -) 20 mg PO DAILY [facility] Last Admin: 12/20/18 10:05 Dose: 20 mg Rivaroxaban (Xarelto) 15 mg PO DAILY@1800 [facility] Last Admin: 12/19/18 17:00 Dose: 15 mg Sacubitril/Valsartan (Entresto 24 Mg-26 Mg Tablet) 1 tab PO BID [facility] Last Admin: 12/20/18 11:16 Dose: 1 tab Spironolactone (Aldactone -) 12.5 mg PO DAILY [facility] Last Admin: 12/20/18 11:13 Dose: 12.5 mg ASSESSMENT/PLAN: 58 yo F with PMH of lumbago w/ chronic pain, CHF, CAD with MIx2 and AICD placement, HTN, COPD, DM, anemia, L mastectomy from breast ca, GERD. Pt p/w Left distal fibular fx after falling at home 1. L Distal Fibular fx -follow up with ortho for rpt imaging -nwb on L leg -pt will benefit from acute rehab on d/c -follow up with PCP after d/c regarding osteoporosis workup 2. DIA -now resolved -BUN/Cr: 17.8/0.9 3. DM -c/w insulin sliding scale and bgm 4. CHF -c/w home medications 5. CAD -c/w home medication 6. Breast Ca -outpt mgmt 7. Hx of DVT -lifelong Anticoagulation -pt on Xarelto 8. DVT ppx: -pt on xarelto Visit type - Emergency Visit Emergency Visit: No - New Patient This patient is new to me today: No - Critical Care Critical Care patient: No
[2018-12-20] MEDS: RIVAROXABAN 15 MG TABLET PO SCH (18:05)
[2018-12-20] MEDS: INSULIN (LEVEMIR) 100 UNITS/ML UNITS SQ SCH (21:02)
[2018-12-21] MEDS: INSULIN SLIDING SCALE (NOVOLOG) 1 VIAL SQ SCH ×3 (01:00→11:57)
[2018-12-21] MEDS: oxyCODONE HCL 5 MG TABLET PO PRN ×3 (02:50→11:02)
[2018-12-21] MEDS: FUROSEMIDE 40 MG TABLET (FP) PO SCH ×2 (06:23→14:43)
[2018-12-21] MEDS ORDERED: INSULIN (NOVOLOG) ASPART 100 UNITS/ML 10ML VIAL ONE ×2 (06:59→11:54)
--- NOTE | 2018-12-21 08:00 | PN ---
Physical Exam: SUBJECTIVE: Patient seen and examined at bedside. pt states that pain is improving. She is taking PO pain medication now which is helping with the pain. OBJECTIVE: Vital Signs Period Temp Pulse Resp BP Sys/Massey Pulse Ox Last 24 Hr 8.7 F-98.8 F 88-93 18-19 99-120/50-70 98-98 GENERAL: The patient is awake, alert, and fully oriented, in no acute distress. LUNGS: Breath sounds equal, clear to auscultation bilaterally, no wheezes, no crackles, no accessory muscle use. HEART: Regular rate and rhythm, S1, S2 without murmur, rub or gallop. ABDOMEN: Soft, nontender, nondistended, normoactive bowel sounds, no guarding, no rebound EXTREMITIES: 2+ pulses, warm, well-perfused, no edema, L lower leg splint. NEUROLOGICAL: Normal speech. PSYCH: Normal mood, normal affect. SKIN: Warm, dry, normal turgor, no rashes or lesions noted Laboratory Results - last 24 hr 12/21/18 12/21/18 01:39 06:24 POC Glucometer 200 206 Active Medications Aspirin (Asa -) 81 mg PO DAILY [facility] Last Admin: 12/20/18 10:03 Dose: 81 mg Carvedilol (Coreg -) 3.125 mg PO BID [facility] Last Admin: 12/20/18 21:01 Dose: 3.125 mg Citalopram Hydrobromide (Celexa -) 20 mg PO DAILY [facility] Last Admin: 12/20/18 11:17 Dose: 20 mg Furosemide (Lasix -) 40 mg PO BIDLASIX [facility] Last Admin: 12/21/18 06:23 Dose: 40 mg Gabapentin (Neurontin -) 600 mg PO BID [facility] Last Admin: 12/20/18 21:01 Dose: 600 mg Insulin Aspart (Novolog Vial Sliding Scale -) 1 vial SQ Q6HPO [facility]; Protocol Last Admin: 12/21/18 06:25 Dose: 4 units Insulin Detemir (Levemir Vial) 39 units SQ HS [facility] Last Admin: 12/20/18 21:02 Dose: 39 units Oxycodone HCl (Roxicodone -) 10 mg PO Q4H PRN PRN Reason: PAIN LEVEL 1 - 3 Last Admin: 12/21/18 06:53 Dose: 10 mg Pantoprazole Sodium (Protonix -) 20 mg PO DAILY [facility] Last Admin: 12/20/18 10:05 Dose: 20 mg Rivaroxaban (Xarelto) 15 mg PO DAILY@1800 [facility] Last Admin: 12/20/18 18:05 Dose: 15 mg Sacubitril/Valsartan (Entresto 24 Mg-26 Mg Tablet) 1 tab PO BID [facility] Last Admin: 12/20/18 21:04 Dose: 1 tab Spironolactone (Aldactone -) 12.5 mg PO DAILY [facility] Last Admin: 12/20/18 11:13 Dose: 12.5 mg ASSESSMENT/PLAN: 58 yo F with PMH of lumbago w/ chronic pain, CHF, CAD with MIx2 and AICD placement, HTN, COPD, DM, anemia, L mastectomy from breast ca, GERD. Pt p/w Left distal fibular fx after falling at home 1. L Distal Fibular fx -follow up with ortho for rpt imaging in 12-29 -nwb on L leg -pt will benefit from acute rehab on d/c -PO roxicodone 10mg as needed for pain -follow up with PCP after d/c regarding osteoporosis workup 2. DIA -now resolved -BUN/Cr: 17.8/0.9 3. DM -c/w insulin sliding scale and bgm 4. CHF -c/w home medications 5. CAD -c/w home medication 6. Breast Ca -outpt mgmt 7. Hx of DVT -lifelong Anticoagulation -pt on Xarelto 8. DVT ppx: -pt on xarelto
[2018-12-21] MEDS ORDERED: PT OWN MED DRAWER 7, Y5N ONE (09:08)
[2018-12-21] MEDS: ASPIRIN 81 MG CHEWABLE TABLETS PO SCH (09:36)
[2018-12-21] MEDS: GABAPENTIN 300 MG CAPSULE (FP) PO SCH (09:36)
[2018-12-21] MEDS: SPIRONOLACTONE 25 MG TABLET (FP) PO SCH (09:37)
[2018-12-21] MEDS: CITALOPRAM HYDROBROMIDE 20 MG TABLET (FP) PO SCH (09:37)
[2018-12-21] MEDS: CARVEDILOL 3.125 MG TABLET (FP) PO SCH (09:38)
[2018-12-21] MEDS: PANTOPRAZOLE 20 MG TABLET (FP) PO SCH (09:38)
[2018-12-21] MEDS: SACUBITRIL/VALSARTAN 24 MG-26 MG TABLET PO SCH (09:39)
[2018-12-21 13:31] VITALS: BP 96/57; PULSE 85; TEMP 98.3
[2018-12-21] MEDS ORDERED: POLYETHYLENE GLYCOL 3350 119 GM BTL PO ONE (14:22)
--- NOTE | 2018-12-21 14:33 | DS ---
Physical Exam: SUBJECTIVE: Patient seen and examined at bedside. pt is stable and states her pain is improving. OBJECTIVE: Vital Signs Period Temp Pulse Resp BP Sys/Massey Pulse Ox Last 24 Hr 8.7 F-98.5 F 85-90 -19 96-110/57-66 98-99 PHYSICAL EXAM GENERAL: The patient is awake, alert, and fully oriented, in no acute distress. HEAD: Normal with no signs of trauma. LUNGS: Breath sounds equal, clear to auscultation bilaterally, no wheezes, no crackles, no accessory muscle use. HEART: Regular rate and rhythm, S1, S2 without murmur, rub or gallop. ABDOMEN: Soft, nontender, nondistended, normoactive bowel sounds, no guarding, no rebound EXTREMITIES: 2+ pulses, warm, well-perfused, no edema. L leg splint NEUROLOGICAL: Cranial nerves II through XII grossly intact. Normal speech, gait not observed. PSYCH: Normal mood, normal affect. SKIN: Warm, dry, normal turgor, no rashes or lesions noted. LABS Laboratory Results - last 24 hr 12/20/18 12/20/18 12/21/18 17:21 21:00 01:39 POC Glucometer 225 187 200 12/21/18 12/21/18 06:24 11:49 POC Glucometer 206 193 Laboratory Last Values WBC 7.3 K/mm3 (4.0-10.0) 12/19/18 06:30 RBC 3.35 M/mm3 (3.60-5.2) L 12/19/18 06:30 Hgb 10.6 GM/dL (10.7-15.3) L 12/19/18 06:30 Hct 31.6 % (32.4-45.2) L 12/19/18 06:30 MCV 94.4 fl (80-96) 12/19/18 06:30 MCH 31.6 pg (25.7-33.7) 12/19/18 06:30 MCHC 33.5 g/dl (32.0-36.0) 12/19/18 06:30 RDW 13.4 % (11.6-15.6) 12/19/18 06:30 Plt Count 259 K/MM3 (134-434) 12/19/18 06:30 MPV 8.9 fl (7.5-11.1) 12/19/18 06:30 Absolute Neuts (auto) 4.7 K/mm3 (1.5-8.0) 12/19/18 06:30 Neutrophils % 64.7 % (42.8-82.8) 12/19/18 06:30 Lymphocytes % 26.2 % (8-40) 12/19/18 06:30 Monocytes % 7.6 % (3.8-10.2) 12/19/18 06:30 Eosinophils % 1.1 % (0-4.5) D 12/19/18 06:30 Basophils % 0.4 % (0-2.0) 12/19/18 06:30 Nucleated RBC % 0 % (0-0) 12/19/18 06:30 PT with INR 11.90 SEC (9.7-13.0) 12/18/18 08:30 INR 1.01 (0.83-1.09) 12/18/18 08:30 Sodium 139 mmol/L (136-145) 12/19/18 06:30 Potassium 3.7 mmol/L (3.5-5.1) 12/19/18 06:30 Chloride 107 mmol/L (98-107) 12/19/18 06:30 Carbon Dioxide 25 mmol/L (21-32) 12/19/18 06:30 Anion Gap 8 MMOL/L (8-16) 12/19/18 06:30 BUN 17.8 mg/dL (7-18) 12/19/18 06:30 Creatinine 0.9 mg/dL (0.55-1.3) 12/19/18 06:30 Est GFR (CKD-EPI)AfAm 82.84 12/19/18 06:30 Est GFR (CKD-EPI)NonAf 71.48 12/19/18 06:30 POC Glucometer 193 UNITS (80-120) 12/21/18 11:49 Random Glucose 180 mg/dL (74-106) H 12/19/18 06:30 Calcium 8.8 mg/dL (8.5-10.1) 12/19/18 06:30 Phosphorus 4.2 mg/dL (2.5-4.9) 12/19/18 06:30 Magnesium 1.9 mg/dL (1.8-2.4) 12/19/18 06:30 Total Bilirubin 0.6 mg/dL (0.2-1) 12/19/18 06:30 AST 10 U/L (15-37) L 12/19/18 06:30 ALT 12 U/L (13-61) L 12/19/18 06:30 Alkaline Phosphatase 129 U/L (45-117) H 12/19/18 06:30 Creatine Kinase 79 U/L (26-192) 12/18/18 05:08 Troponin I < 0.02 ng/ml (0.00-0.05) 12/18/18 05:08 B-Natriuretic Peptide 178.6 pg/ml (5-125) H 12/18/18 05:08 Total Protein 7.0 g/dl (6.4-8.2) 12/19/18 06:30 Albumin 3.3 g/dl (3.4-5.0) L 12/19/18 06:30 Urine Color Yellow 12/18/18 05:20 Urine Appearance Cloudy 12/18/18 05:20 Urine pH 5.0 (5.0-8.0) 12/18/18 05:20 Ur Specific Mcleod 1.035 (1.010-1.035) 12/18/18 05:20 Urine Protein Negative (NEGATIVE) 12/18/18 05:20 Urine Glucose (UA) 3+ (NEGATIVE) H 12/18/18 05:20 Urine Ketones Trace (NEGATIVE) H 12/18/18 05:20 Urine Blood Negative (NEGATIVE) 12/18/18 05:20 Urine Nitrite Negative (NEGATIVE) 12/18/18 05:20 Urine Bilirubin Negative (NEGATIVE) 12/18/18 05:20 Urine Urobilinogen 1.0 mg/dL (0.2-1.0) 12/18/18 05:20 Ur Leukocyte Esterase Negative (NEGATIVE) 12/18/18 05:20 Blood Type A POSITIVE 12/18/18 12:41 Antibody Screen Positive 12/18/18 12:41 Antibody Identification Anti-k 12/18/18 12:41 Antigen Identification No Result Required. 12/18/18 12:41 XRAY ANKLE&FOOT: Distal fibular fracture. Arthritic changes. Correlation recommended HOSPITAL COURSE: Date of Admission:12/18/18 Pt is admitted following a fall with L leg pain. Pt has PMH of lumbago w/ chronic pain, CHF, CAD w/ [place] x2 and AICD placement, HTN, COPD, DM, anemia, L mastectomy s/p breast ca, and GERD. Pt had imaging done showing a left distal fibular fracture. pt is followed by the ortho team. The fracture is managed conservatively with a splint. Pt should remain NWB on L leg. Pt is to continue to follow up with ortho outpatient for repeat imaging. Pt is discharged to subacute rehab. Pt should get DEXA scan outpatient and a full osteoporosis workup with her PCP. Pt has PMH of Diabetes which was managed w/ bgm and sliding scale. for the pt history of CHF and CAD the home medications were continued. The pt should remain on Xarelto 2/2 history of DVT. Date of Discharge: 12/21/18 Minutes to complete discharge: 37 Discharge Summary Reason For Visit: FX OF DISTAL END OF FIBULA, AMBULATORY DYSFUNCTION Current Active Problems Fracture of distal fibula (Acute) Impaired ambulation (Acute) Knee buckling (Acute) Diabetes mellitus (Chronic) Condition: Improved - Instructions Diet, Activity, Other Instructions: You presented to the hospital with pain in your left leg after a fall. Your imaging revealed a broken bone in your left leg. You will continue wearing a splint on your left leg and following with the orthopedic physician. Medication: 1. Continue your home medications as prescribed. Follow up with the following physicians: 1. Follow up with the orthopedic physician (Dr. Adame) in one week, please call to schedule follow up to further manage your broken leg and to repeat X-rays. 2. Follow up with your primary physician to evaluate your bones for weakness and to continue your medical management. You will be given a prescription for bone scan to evaluate for osteoporosis. Please bring the results when you see your primary doctor. While you were in the hospital, your blood sugar levels have been elevated. Continue to monitor your sugar and continue your diabetes regimen. It is important to follow up with your primary doctor for further management. Activity/Diet: 1. Please avoid keeping weight on your left leg. Continue to keep your left leg elevated. 2. Please continue to monitor your diet as you need to intake less sugar and drink plenty of fluids. You are being discharged to a rehab facility to strengthen your muscles. Continue all your other medications as prescribed Please return to the ER if you have any signs or symptoms of chest pain, shortness of breath, uncontrollable fever, chills, nausea, vomiting, numbness, tingling, or weakness in any part of your body, changes in vision, or slurred speech. Please return to the ER if symptoms persist, worsen, or new symptoms arise. Referrals: Roel Weber MD [Staff Physician] - 1 Week Disposition: [facility]OD[facility]ACILITY - Home Medications Comprehensive Discharge Medication List: Ambulatory Orders Aspirin 81 mg PO DAILY 12/13/12 Carvedilol [Coreg] 3.125 mg PO BID 12/13/12 Furosemide [Lasix -] 40 mg PO BID 12/10/14 Omeprazole [Prilosec] 20 mg PO DAILY 12/10/14 Citalopram Hydrobromide [Citalopram HBr] 20 mg PO DAILY 12/18/18 Gabapentin 600 mg PO BID 12/18/18 Insulin (Levemir) [Levemir Flexpen -] 39 units SQ HS 12/18/18 Nitroglycerin 0.4 mg SL PRN PRN 12/18/18 Rivaroxaban [Xarelto -] 15 mg PO DAILY 12/18/18 Sacubitril/Valsartan [Entresto 24 mg-26 mg Tablet] 1 each PO BID 12/18/18 Spironolactone 12.5 mg PO DAILY 12/18/18 Tizanidine HCl 4 mg PO PRN PRN 12/18/18 Insulin Sliding Scale [Novolog Vial Sliding Scale -] 1 vial SQ Q6HPO units 08/10 This patient is new to me today: No Emergency Visit: No Critical Care patient: No - Discharge Referral Referred to [facility] No
--- NOTE | 2018-12-21 16:01 | PN ---
Teaching Attending Note Name of Resident: Lupe Guzman ATTENDING PHYSICIAN STATEMENT I saw and evaluated the patient. I reviewed the resident's note and discussed the case with the resident. I agree with the resident's findings and plan as documented. SUBJECTIVE: Reports ongoing discomfort LLE. No fever/chills/CP/SOB. No numbness/ tingling LLE. OBJECTIVE: Afebrile, Hemodynamically Stable. Last Vital Signs Temp Pulse Resp BP Pulse Ox 98.3 F 85 18 96/57 L 99 12/21/18 13:12/21/18 13:12/21/18 13:12/21/18 13:12/21/18 09:00 HEENT - Atraumatic, Normocephalic. Heart - S1, S2, RRR Lungs - clear to auscultation Abdomen - Soft, non-tender. Extremities - LLE splinted. No R calf tenderness. Laboratory Results - last 24 hr 12/20/18 12/20/18 12/21/18 17:21 21:00 01:39 POC Glucometer 225 187 200 12/21/18 12/21/18 06:24 11:49 POC Glucometer 206 193 Current Medications Generic Name Dose Route Start Last Admin Trade Name Freq PRN Reason Stop Dose Admin Aspirin 81 mg 12/19/18 10:00 12/21/18 09:36 Asa - PO 81 mg DAILY WYATT Administration Carvedilol 3.125 mg 12/18/18 10:12/21/18 09:38 Coreg - PO 3.125 mg BID WYATT Administration Citalopram Hydrobromide 20 mg 12/18/18 10:12/21/18 09:37 Celexa - PO 20 mg DAILY WYATT Administration Furosemide 40 mg 12/18/18 07:15 12/21/18 14:43 Lasix - PO 40 mg BIDLASIX WYATT Administration Gabapentin 600 mg 12/18/18 10:00 12/21/18 09:36 Neurontin - PO 600 mg BID WYATT Administration Insulin Aspart 1 vial 12/18/18 06:45 12/21/18 11:57 Novolog Vial Sliding Scale - SQ 2 units Q6HPO WYATT Administration Protocol Insulin Detemir 39 units 12/18/18 22:00 12/20/18 21:02 Levemir Vial SQ 39 units HS WYATT Administration Oxycodone HCl 10 mg 12/18/18 10:36 12/21/18 11:02 Roxicodone - PO 10 mg Q4H PRN Administration PAIN LEVEL 1 - 3 Pantoprazole Sodium 20 mg 12/18/18 10:00 12/21/18 09:38 Protonix - PO 20 mg DAILY WYATT Administration Rivaroxaban 15 mg 12/19/18 18:00 12/20/18 18:05 Xarelto PO 15 mg DAILY@1800 WYATT Administration Sacubitril/Valsartan 1 tab 12/18/18 10:00 12/21/18 09:39 Entresto 24 Mg-26 Mg Tablet PO 1 tab BID WYATT Administration Spironolactone 12.5 mg 12/18/18 10:00 12/21/18 09:37 Aldactone - PO 12.5 mg DAILY WYATT Administration ASSESSMENT AND PLAN: 58 year old female with Chronic Back Pain, Chronic Systolic CHF, CAD s/p [place] x 2 , s/p AICD placement, HTN, COPD, DM 2, Chronic Anemia, s/p mastectomy sec breast CA, and GERD, presents with fall from standing position at home, found to have a distal fibula fracture. 1. Acute L Distal fibular fracture - secondary to mechanical fall. s/p splint. Evaluated by Ortho - no surgical intervention required as fracture is non- displaced. NWB LLE, WBAT RLE, Splint, Elevation as per Ortho. For SNF/Rehab placement. Outpatient workup to determine cause of fracture ?osteoporosis ?pathologic 2. DIA - resolved. 3. DM 2 - Continue home regimen with Novolog sliding scale coverage as needed. 4. Chronic Systolic CHF s/p AICD - No evidence of acute decompensation. Continue Lasix, Aldactone, Entresto, Coreg. 5. CAD - s/p SERVICING MANAGER, lesions not amenable to stenting. Continue Aspirtin/BB/ALMA ROSA-I. 6. HX DVT - Continue Xarelto. 7. Breast Ca s/p Mastectomy - out-patient follow up. DVT Px - on Xarelto Dispo- awaiting placement at [facility].
[2018-12-22 19:29] VITALS: BMI 33.3
== END 2018-12-21 17:59 | DRG 563 ==
LOC: JER 02:21 → JERBED 05:54 → J6S 08:49
PROVIDERS: ADMIT Internal Medicine
DX: S82.445A Nondisplaced spiral fracture of shaft of left fibula, initial encounter for closed fracture (principal); I50.20 Unspecified systolic (congestive) heart failure; N17.9 Acute kidney failure, unspecified; S80.01XA Contusion of right knee, initial encounter; I11.0 Hypertensive heart disease with heart failure; I25.10 Atherosclerotic heart disease of native coronary artery without angina pectoris; E11.65 Type 2 diabetes mellitus with hyperglycemia; K21.9 Gastro-esophageal reflux disease without esophagitis; J44.9 Chronic obstructive pulmonary disease, unspecified; W19.XXXA Unspecified fall, initial encounter; Y93.9 Activity, unspecified; Y92.89 Other specified places as the place of occurrence of the external cause; Y99.9 Unspecified external cause status; Z85.3 Personal history of malignant neoplasm of breast
CPT/HCPCS: 36415; 71045-TC-FY; 73523-TC-FY; 73562-TC-RT-FY; 73610-TC-LT-FY; 73630-TC-LT; 80048; 80053; 81003; 82550; 82962; 83735; 83880; 84100; 84484; 85025; 85610; 86850; 86870; 86900; 86901; 86902; 93005; 93010; 97116-GP; 99284-25; J1644

== ENCOUNTER 2018-12-28 21:45 | Emergency (ER) | payer OTHER ==
[2018-12-28 22:12] VITALS: BMI 32.3
--- NOTE | 2018-12-28 23:33 | PDOC ---
History of Present Illness - General Chief Complaint: Back Pain Stated Complaint: KNEE PAIN Time Seen by Provider: 12/28/18 22:23 - History of Present Illness Initial Comments: Ирина Glez is a 58yo woman with a PMH of chronic pain, CHF s/p AICD, CAD s/p [place] x2, HTN, IDDM, anemia, Left mastectomy due to breast CA, recurrent DVT's and PE (originally on Eliquis, switched to warfarin, now on Xarelto), recent L ankle fracture following a mechanical fall who presents from [facility] with worsening right knee pain. She reports that the pain has been present since her initially hospitalization for the fracture, but it has worsened over time. Today , the pain is so severe that she says she is unable to ambulate or let anything touch her knee. She is not aware of any new trauma, swelling, redness, or other recent changes to her knee. She reports that she takes oxycodone for pain while at rehab, and neither the oxy nor applying ice has helped the knee pain at all. Past History - Past Medical History Allergies/Adverse Reactions: Allergies Allergy/AdvReac Type Severity Reaction Status Date / Time prochlorperazine edisylate Allergy Intermediate Swelling Verified 12/28/18 22:11 [From Compazine] prochlorperazine maleate Allergy Intermediate Swelling Verified 12/28/18 22:11 [From Compazine] Home Medications: Ambulatory Orders Aspirin 81 mg PO DAILY 12/13/12 Carvedilol [Coreg] 3.125 mg PO BID 12/13/12 Furosemide [Lasix -] 40 mg PO BID 12/10/14 Omeprazole [Prilosec] 20 mg PO BID 12/10/14 Citalopram Hydrobromide [Citalopram HBr] 20 mg PO DAILY 12/18/18 Gabapentin 600 mg PO BID 12/18/18 Insulin (Levemir) [Levemir Flexpen -] 39 units SQ HS 12/18/18 Nitroglycerin 0.4 mg SL PRN PRN 12/18/18 Rivaroxaban [Xarelto -] 15 mg PO DAILY 12/18/18 Sacubitril/Valsartan [Entresto 24 mg-26 mg Tablet] 1 each PO BID 12/18/18 Spironolactone 12.5 mg PO DAILY 12/18/18 Tizanidine HCl 4 mg PO TID PRN 12/18/18 Insulin Sliding Scale [Novolog Vial Sliding Scale -] 1 vial SQ Q6HPO units 08/10 Anemia: Yes Asthma: Yes Cancer: Yes (left breast) Cardiac Disorders: Yes COPD: Yes CHF: Yes Diabetes: Yes GI Disorders: Yes (acid reflux) HTN: Yes Hypercholesterolemia: Yes - Surgical History Cardiac Surgery: Yes (stent x 1 in 2006, INTERNAL DEFIB.) - Suicide/Smoking/Psychosocial Hx Smoking Status: No Smoking History: Never smoked Have you smoked in the past 12 months: No Number of Cigarettes Smoked Daily: 0 Information on smoking cessation initiated: No Hx Alcohol Use: No Drug/Substance Use Hx: No Substance Use Type: None Hx Substance Use Treatment: No Review of Systems - Review of Systems Comments:: General: No fevers, no chills, no weight or appetite change, no malaise HEENT: No changes in vision, no changes in hearing, no congestion, no sore throat CV: No chest pain, no palpitations, no LE edema Pulm: No SOB, no cough, no wheezing GI: No nausea or vomiting, no change in bowel habits, no melena : No frequency, no urgency, no dysuria Musc: See HPI Skin: No rash, no lesions, no erythema Endo: No excessive thirst, no heat/cold intolerance Heme: No unusual bruising or bleeding, no swollen glands Neuro: No syncope, no numbness/tingling, no focal weakness Vasc: No claudication Psych: No recent change in mood, no SI or HI *Physical Exam - Vital Signs Last Vital Signs Temp Pulse Resp BP Pulse Ox 97.8 F 66 18 116/84 100 12/28/18 21:45 12/28/18 21:45 12/28/18 21:45 12/28/18 21:45 12/28/18 21:45 - Physical Exam Comments: General: Uncomfortable but in no acute distress HEENT: PERRL, EOMI, MMM, voice normal Cards: RRR, no murmur appreciated Pulm: Comfortable on room air, clear to auscultation bilaterally Abd: Soft, nontender, nondistended Ext: LLE w/ spint in place. Right knee w/ severe TTP especially medial and posterior knee. No edema, erythema, fluctuance or apparent injury to knee. Pt declines to move knee. Able to plantar flex and dorsiflex foot, sensation to light touch intact. Vasc: Extremities WWP Skin: Normal color, no rashes or lesions Neuro: A&Ox3, CN grossly intact, normal speech, motor/sensory grossly intact and symmetric Psych: Mood appropriate to situation Medical Decision Making - Medical Decision Making 12/28/18 23:33 Ирина Glez is a 58yo woman with a PMH of chronic pain, CHF s/p AICD, CAD s/p [place] x2, HTN, IDDM, anemia, Left mastectomy due to breast CA, recurrent DVT's and PE (originally on Eliquis, switched to warfarin, now on Xarelto), recent L ankle fracture following a mechanical fall who presents from [facility] with worsening right knee pain that has been present since her original injury. She reports no relief with her home oxycodone. - Pt had xray completed one week ago, no fracture noted following fall - No edema, erythema, or sign of injury - Poor knee exam secondary to pain - Given history of recurrent DVT while on anticoagulation, duplex US ordered - Toradol for pain 12/29/18 01:36 - Duplex negative for DVT - Discussed w/ Ms Glez. Understands that she is already receiving narcotics and was given an NSAID in the ED. - Given no sign of or report of injury, recent negative xray, negative duplex, will d/c back to rehab. Pain may be related to overuse due to the left fibular fracture. - Will give 2mg valium for possible muscle spasm and place lidocaine patch on the knee prior to discharge. Discussed with Dr Glez. Lauren Colby PGY2 *DC/Admit/Observation/Transfer Diagnosis at time of Disposition: Right knee pain Qualifiers: Chronicity: unspecified Qualified Code(s): M25.561 - Pain in right knee - Discharge Dispostion Disposition: HOME Condition at time of disposition: Stable - Referrals Referrals: Aki Guzman MD [Primary Care Provider] - Roel Weber MD [Staff Physician] - - Patient Instructions Printed Discharge Instructions: DI for Knee Pain Additional Instructions: Discharge Instructions: You were seen in the emergency department for right knee pain. You had an ultrasound of the right leg to check for blood clots or other problems, but there were none found. You had a recent xray showing no fracture of the knee. Home Care and Follow Up: - You may use over the counter medications as needed for pain at home. 650- 1000mg acetaminophen (Tylenol) or 600mg ibuprofen (Motrin or Advil) can be used every 6-8 hours. If needed for continued pain, these medications may be alternated every 3-4 hours. For example, if you take ibuprofen at 9am, you may take acetaminophen at noon, ibuprofen at 3pm, etc. - It is strongly recommended that you take ibuprofen with food to help prevent stomach irritation. - You may buy a numbing patch that contains lidocaine (the patch is 4% lidocaine ) that can be placed over the areas of greatest pain. The lidocaine patch may be placed for 12 hours then removed for 12 hours. - Try using an ice pack for 20 minutes every hour or a heating pad for additional pain control. These should NOT be used over the lidocaine patch, but you may place them over the areas of pain while the patch is off. - Do not stop moving around. As much as you can tolerate, continue to do light exercise and stretching exercises. Increase your activity level as much as you can tolerate daily. - If your pain does not improve over the next week, please see Dr Weber ( orthopedics) for follow up. - Seek immediate medical care if you have significant worsening of your symptoms , you have warmth or swelling in the knee, or you have any medical emergency. - Post Discharge Activity
[2018-12-28] MEDS ORDERED: KETOROLAC TROMETHAMINE 60 MG/2 ML VIAL IM ONE (23:34)
[2018-12-28] MEDS ORDERED: KETOROLAC TROMETHAMINE 60 MG/2 ML VIAL ONE (23:50)
[2018-12-29] MEDS ORDERED: diazePAM 2 MG TABLET PO ONE (01:14)
[2018-12-29] MEDS ORDERED: LIDOCAINE 5% TOPICAL PATCH TP ONE (01:14)
--- NOTE | 2018-12-29 01:27 | PDOC ---
Documentation entered by Yara Kaplan SCRIBE, acting as scribe for Regi Glez MD. Regi Glez MD: This documentation has been prepared by the scribe, Yara Kaplan SCRIBE, under my direction and personally reviewed by me in its entirety. I confirm that the documentation accurately reflects all work, treatment, procedures, and medical decision making performed by me. Attending Attestation - Resident Resident Name: Lauren Colby - ED Attending Attestation I have performed the following: I have examined & evaluated the patient, The case was reviewed & discussed with the resident, I agree w/resident's findings & plan, Exceptions are as noted - HPI HPI: 12/28/18 23:49 The patient is a 58 year old female with a significant past medical history of CHF, CAD, [place](2X) AICD in place, hypertension, COPD, diabetes, lumbago with chronic , anemia L mastectomy 2/2 breast ca, DVTs, PE (on Xarelto) ,and asthma who presets to the emergency department s/p a mechanical fall yesterday. Patient says she has recurrent falls because of chronic pain and unsteadiness in her lower extremities. 12/29/18 01:33 - Physicial Exam PE: 12/29/18 01:30 obese 58 yo female [facility]. On 12/18/18 she had a fracture of her left fibula and it is in a cast 12/29/18 01:33 head ncat neck supple lung cta b/l cvs [id number] abd protuberant skin warm and dry extremities her left leg is in a cast, right leg has no deformity but she has posterior knee pain,no erythema ,no patellar ballottment neuro axox3 - Medical Decision Making 12/29/18 01:04 duplex doppler : no DVT in right leg 12/29/18 01:38 pt [facility] be [facility] to the [facility]
--- NOTE | 2018-12-29 01:35 | PDOC ---
*Physical Exam - Vital Signs Last Vital Signs Temp Pulse Resp BP Pulse Ox 97.8 F 66 18 116/84 100 12/28/18 21:45 12/28/18 21:45 12/28/18 21:45 12/28/18 21:45 12/28/18 21:45 ED Treatment Course - RADIOLOGY Radiology Studies Ordered: Category Date Time Status DUPLEX VASCUL US-1 LEG [US] Stat Ultrasound 12/29/18 23:33 Taken - Medications Given in the ED: ED Medications Discontinued Medications Generic Name Dose Route Start Last Admin Trade Name Simon PRN Reason Stop Dose Admin Ketorolac Tromethamine 60 mg 12/28/18 23:34 12/28/18 23:50 Toradol Injection - IM 12/28/18 23:35 60 mg ONCE ONE Administration Medical Decision Making - Medical Decision Making 12/29/18 01:33 Please see H&P for additional information. Due to computer error, could not edit original note at this time. - Duplex negative for DVT - Discussed w/ Ms Glez. Understands that she is already receiving narcotics and was given an NSAID in the ED. - Given no sign of or report of injury, recent negative xray, negative duplex, will d/c back to rehab. Pain may be related to overuse due to the left fibular fracture. - Will give 2mg valium for possible muscle spasm and place lidocaine patch on the knee prior to discharge. Discussed with Dr Glez. Lauren Colby PGY2 *DC/Admit/Observation/Transfer Diagnosis at time of Disposition: Right knee pain Qualifiers: Chronicity: unspecified Qualified Code(s): M25.561 - Pain in right knee - Discharge Dispostion Disposition: HOME Condition at time of disposition: Stable Decision to Admit order: No - Referrals Referrals: Aki Guzman MD [Primary Care Provider] - Roel Weber MD [Staff Physician] - - Patient Instructions Printed Discharge Instructions: DI for Knee Pain Additional Instructions: Discharge Instructions: You were seen in the emergency department for right knee pain. You had an ultrasound of the right leg to check for blood clots or other problems, but there were none found. You had a recent xray showing no fracture of the knee. Home Care and Follow Up: - You may use over the counter medications as needed for pain at home. 650- 1000mg acetaminophen (Tylenol) or 600mg ibuprofen (Motrin or Advil) can be used every 6-8 hours. If needed for continued pain, these medications may be alternated every 3-4 hours. For example, if you take ibuprofen at 9am, you may take acetaminophen at noon, ibuprofen at 3pm, etc. - It is strongly recommended that you take ibuprofen with food to help prevent stomach irritation. - You may buy a numbing patch that contains lidocaine (the patch is 4% lidocaine ) that can be placed over the areas of greatest pain. The lidocaine patch may be placed for 12 hours then removed for 12 hours. - Try using an ice pack for 20 minutes every hour or a heating pad for additional pain control. These should NOT be used over the lidocaine patch, but you may place them over the areas of pain while the patch is off. - Do not stop moving around. As much as you can tolerate, continue to do light exercise and stretching exercises. Increase your activity level as much as you can tolerate daily. - If your pain does not improve over the next week, please see Dr Weber ( orthopedics) for follow up. - Seek immediate medical care if you have significant worsening of your symptoms , you have warmth or swelling in the knee, or you have any medical emergency. - Post Discharge Activity
[2018-12-29] MEDS ORDERED: LIDOCAINE 5% TOPICAL PATCH ONE (01:44)
[2018-12-29] MEDS ORDERED: diazePAM 2 MG TABLET ONE (01:46)
[2018-12-29 04:15] VITALS: BP 110/56; PULSE 92; TEMP 98.2
[2018-12-29] MEDS ORDERED: LIDOCAINE PATCH REMOVAL MC SCH (22:00)
== END 2018-12-29 04:27 | disposition home or self-care (01) ==
LOC: JER 21:45
PROC: 3E0233Z Introduction of Anti-inflammatory into Muscle, Percutaneous Approach (ICD-10-PCS; principal; 2018-12-28)
DX: M25.561 Pain in right knee (principal); G89.29 Other chronic pain; I25.10 Atherosclerotic heart disease of native coronary artery without angina pectoris; I25.2 Old myocardial infarction; I10 Essential (primary) hypertension; E11.9 Type 2 diabetes mellitus without complications; Z85.3 Personal history of malignant neoplasm of breast
CPT/HCPCS: 93971-TC; 99281-25

== ENCOUNTER 2019-01-12 13:27 | Observation (INO) | payer OTHER ==
--- NOTE | 2019-01-12 14:00 | PDOC ---
History of Present Illness - General Chief Complaint: Chest Pain Stated Complaint: CHEST PAIN History Source: Patient Exam Limitations: No Limitations - History of Present Illness Initial Comments: 58 yo F with a hx of CAD (s/p 1x stent 2007 s/p defibrillator; 2x [place]), HTN, DM, HLD, CHF (20% EF; followed by Dr. Guerrero in [facility]), breast cancer s/p masectomy, COPD, DVT, PE (multiple last one in 2018; failed eliquis and Coumadin with reoccurrence), and atrial fibrillation presents to the emergency department with chest pain. Began at 9am in the left center chest with pressure in quality with radiation to the left arm and upper back. Denies radiation to the neck. Endorses SOB and nausea, but denies coughing and vomiting. Endorses being in a state of compliancy with her medications ( currently on xarelto). Denies symptoms being similar to previous PE and ACS. Social: Denies current tobacco, alcohol, and substance abuse Shx: Masectomy 01/12/19 16:19 Past History - Past Medical History Allergies/Adverse Reactions: Allergies Allergy/AdvReac Type Severity Reaction Status Date / Time prochlorperazine edisylate Allergy Intermediate Swelling Verified 12/28/18 22:11 [From Compazine] prochlorperazine maleate Allergy Intermediate Swelling Verified 12/28/18 22:11 [From Compazine] Home Medications: Ambulatory Orders Aspirin 81 mg PO DAILY 12/13/12 Carvedilol [Coreg] 3.125 mg PO BID 12/13/12 Furosemide [Lasix -] 40 mg PO BID 12/10/14 Omeprazole [Prilosec] 20 mg PO BID 12/10/14 Citalopram Hydrobromide [Citalopram HBr] 20 mg PO DAILY 12/18/18 Gabapentin 600 mg PO BID 12/18/18 Insulin (Levemir) [Levemir Flexpen -] 39 units SQ HS 12/18/18 Nitroglycerin 0.4 mg SL PRN PRN 12/18/18 Rivaroxaban [Xarelto -] 15 mg PO DAILY 12/18/18 Sacubitril/Valsartan [Entresto 24 mg-26 mg Tablet] 1 each PO BID 12/18/18 Spironolactone 12.5 mg PO DAILY 12/18/18 Tizanidine HCl 4 mg PO TID PRN 12/18/18 Insulin Sliding Scale [Novolog Vial Sliding Scale -] 1 vial SQ Q6HPO units 08/10 Anemia: Yes Asthma: Yes Cancer: Yes (left breast) Cardiac Disorders: Yes COPD: Yes CHF: Yes Diabetes: Yes GI Disorders: Yes (acid reflux) HTN: Yes Hypercholesterolemia: Yes - Surgical History Cardiac Surgery: Yes (stent x 1 in 2006, INTERNAL DEFIB.) - Immunization History Immunization Up to Date: Yes - Suicide/Smoking/Psychosocial Hx Smoking Status: No Smoking History: Unknown if ever smoked Have you smoked in the past 12 months: No Number of Cigarettes Smoked Daily: 0 Information on smoking cessation initiated: No Hx Alcohol Use: No Drug/Substance Use Hx: No Substance Use Type: None Hx Substance Use Treatment: No Review of Systems - Review of Systems Able to Perform ROS?: Yes Is the patient limited Yoruba proficient: No Constitutional: No: Chills, Diaphoresis, Fever HEENTM: No: Eye Pain, Ear Pain, Nose Pain, Throat Pain, Mouth Pain Respiratory: Yes: Shortness of Breath. No: Cough, Hemoptysis Cardiac (ROS): Yes: Chest Pain, Chest Tightness. No: Lightheadedness, Palpitations, Syncope ABD/GI: Yes: Nausea. No: Constipated, Diarrhea, Rectal Bleeding, Vomiting, Tarry Stools : No: Burning, Dysuria, Hematuria, Incontinence Musculoskeletal: Yes: Back Pain. No: Neck Pain Integumentary: No: Bruising, Erythema, Rash Neurological: No: Headache Psychiatric: No: Change in Appetite Endocrine: No: Unexplained Weight Gain Hematologic/Lymphatic: No: Anemia *Physical Exam - Vital Signs Last Vital Signs Temp Pulse Resp BP Pulse Ox 98.0 F 91 H 22 H 80/62 L 99 01/12/19 13:27 01/12/19 13:27 01/12/19 13:27 01/12/19 13:27 01/12/19 13:27 - Physical Exam General Appearance: Yes: Nourished, Appropriately Dressed. No: Apparent Distress, Intoxicated HEENT: positive: EOMI, GRUPO, Normal Voice, Symmetrical, Pharynx Normal, Hearing Grossly Normal. negative: Pale Conjunctivae, Scleral Icterus (R), Scleral Icterus (L), Muffled/Hoarse voice, Pharyngeal Erythema, Tonsillar Exudate, Tonsillar Erythema, Excessive drooling Neck: positive: Trachea midline, Supple. negative: Tender, Lymphadenopathy (R) , Lymphadenopathy (L), Tender lateral, Tender midline Respiratory/Chest: positive: Lungs Clear, Normal Breath Sounds. negative: Chest Tender ED Treatment Course - LABORATORY CBC & Chemistry Diagram: 01/12/19 15:00 01/12/19 15:00 *DC/Admit/Observation/Transfer - Referrals Referrals: Aki Guzman MD [Primary Care Provider] - - Patient Instructions - Post Discharge Activity
[2019-01-12] MEDS ORDERED: SODIUM CHLORIDE 0.9% 500 ML INFUS.BAG IV ONE (14:25)
[2019-01-12] MEDS ORDERED: ASPIRIN 81 MG CHEWABLE TABLETS PO ONE (14:25)
[2019-01-12] MEDS ORDERED: ASPIRIN COATED 81 MG TABLET.EC ONE (14:37)
[2019-01-12 15:14] LABS: EOS % 0.9 % (0-4.5); HEMATOCRIT 34.7 % (32.4-45.2); HEMOGLOBIN 11.6 GM/dL (10.7-15.3); MCHC 33.3 g/dl (32.0-36.0); MONO % 6.6 % (3.8-10.2); NEUT % 64.5 % (42.8-82.8); PLATELET COUNT 312 K/MM3 (134-434); RBC 3.73 M/mm3 (3.60-5.2); RDW 12.9 % (11.6-15.6)
[2019-01-12 15:36] LABS: ALBUMIN 3.8 g/dl (3.4-5.0); BILIRUBIN,TOTAL 0.4 mg/dL (0.2-1); BLOOD UREA NITROGEN 23.6 mg/dL (7-18); CALCIUM 9.9 mg/dL (8.5-10.1); CREATININE 1.2 mg/dL (0.55-1.3); POTASSIUM 4.3 mmol/L (3.5-5.1); TOT PROT 8.2 g/dl (6.4-8.2)
--- NOTE | 2019-01-12 15:50 | PDOC ---
Documentation entered by Mika Fuentes SCRIBE, acting as scribe for Brandt Cm MD. Brandt Cm MD: This documentation has been prepared by the Gina laurent Elijah, SCRIBE, under my direction and personally reviewed by me in its entirety. I confirm that the documentation accurately reflects all work, treatment, procedures, and medical decision making performed by me. Attending Attestation - Resident Resident Name: PawelZev - ED Attending Attestation I have performed the following: I have examined & evaluated the patient, The case was reviewed & discussed with the resident, I agree w/resident's findings & plan - HPI HPI: 01/12/19 15:04 Patient is a 58 year old with a significant past medical history of chronic pain , CHF s/p AICD, CAD s/p [place] x2, HTN, IDDM, anemia, Left mastectomy due to breast CA, recurrent DVT's and PE (originally on Eliquis, switched to warfarin, now on Xarelto), recent L ankle fracture following a mechanical fall who presents from [facility] who presents to the ED with chest pain beginning x6 hours ago . Patient notes that the pain is constant, radiates to the back and associates some SOB. Denies fever, chills. Allergies: Prochlorperazine Edisylate, Prochlorperazine Maleate. - Physicial Exam PE: 01/12/19 15:47 Patient is awake and alert, obese, in no distress normocephalic and atraumatic PERRLA, EOMI No JVD CTA RRR No lower extremity edema Left mastectomy - Medical Decision Making 01/12/19 15:48 Patient is a 58-year-old female with history of multiple comorbidities, EF of 20 % due to previous MIs, AICD in place, recurrent DVTs while on Coumadin and eliquis, presents with atraumatic left-sided chest discomfort radiating to the back. Differential diagnoses includes ACS versus PE. EKG shows no evidence acute ischemia, inverted T waves in noted in 1 and aVL which are present on the previous EKG. Prolonged QTC is also noted. Forward progression in the precordial leads is chronic in nature. Chest x-ray reveals borderline cardiomegaly but no evidence of infiltrate or effusion. Will obtain cardiac enzymes, will obtain CTA of chest given previous failure of anticoagulation. Will admit.
[2019-01-12 19:17] LABS: MAGNESIUM 2.1 mg/dL (1.8-2.4)
--- NOTE | 2019-01-12 20:19 | HP ---
CHIEF COMPLAINT: Chest Pain PCP: HISTORY OF PRESENT ILLNESS: 58 yo F with a PMHx of CAD (s/p 1x stent 2007 s/p defibrillator; 2x [place]), S/P AICD, HTN, DM, HLD, CHF (20% EF; followed by Dr. Guerrero in [facility] ), breast cancer s/p masectomy, COPD, DVT, PE (multiple last one in 2018; failed eliquis and Coumadin with reoccurrence), atrial fibrillation, recent left ankle fracture following a mechanical fall who presents from [facility]. Presents to the emergency department with chest pain. Began at 9am in the left center chest with pressure in quality with radiation to the left arm and upper back. Denies radiation to the neck. Complaines of SOB and nausea, but denies coughing and vomiting. States she is compliant with her medications (currently on xarelto). Denies symptoms being similar to previous PE and ACS. Recent Travel: PAST MEDICAL HISTORY: Breast Cancer, [place] x2, HTN, DM, HLD, CHF, COPD, DVT, PE, Left Ankle Fracture, Anxiety, PAST SURGICAL HISTORY: Left Mastectomy, AICD Social History: Smoking: Former pack and a half to 2 pack a day. Stopped in 2006 Alcohol: Denies Drugs: Denies Family History: Mother: Heart Disease Allergies prochlorperazine edisylate [From Compazine] Allergy (Intermediate, Verified 03/10 22:11) Swelling prochlorperazine maleate [From Compazine] Allergy (Intermediate, Verified 22:11) Swelling HOME MEDICATIONS: Home Medications Medication Instructions Recorded Acetaminophen 650 mg PO QID PRN 01/12/19 Aspirin 81 mg PO DAILY 01/12/19 Carvedilol 3.125 mg PO BID 01/12/19 Citalopram Hydrobromide 20 mg PO DAILY 01/12/19 [Citalopram HBr] Furosemide 40 mg PO BID 01/12/19 Gabapentin [Neurontin] 600 mg PO BID 01/12/19 Insulin Detemir [Levemir Flextouch] 39 unit SQ DAILY 01/12/19 Insulin Lispro [Humalog] 100 unit SQ ASDIR 01/12/19 Magnesium Hydroxide [Milk of 400 mg PO DAILY PRN 01/12/19 Magnesia] Nitroglycerin [Nitrostat] 0.4 mg SL PRN 01/12/19 Omeprazole 20 mg PO BID 01/12/19 Oxycodone HCl 10 mg PO Q4HWA PRN 01/12/19 Polyethylene Glycol 3350 [Miralax 17 gm PO DAILY 01/12/19 (For Daily Use) -] Rivaroxaban [Xarelto] 15 mg PO DAILY 01/12/19 Sacubitril/Valsartan [Entresto 24 1 each PO BID 01/12/19 mg-26 mg Tablet] Sennosides [Senna] 17.2 mg PO HS 01/12/19 Sodium Phosphate,Taliaferro-Dibasic 118 ml RC PRN 01/12/19 [Fleet Enema] Spironolactone 25 mg PO DAILY 01/12/19 Tizanidine HCl 4 mg PO TID PRN 01/12/19 REVIEW OF SYSTEMS CONSTITUTIONAL: Absent: fever, chills, diaphoresis, generalized weakness, malaise, loss of appetite, weight change HEENT: Absent: rhinorrhea, nasal congestion, throat pain, throat swelling, difficulty swallowing, mouth swelling, ear pain, eye pain, visual changes CARDIOVASCULAR: Present: Chest Pain, Absent: syncope, palpitations, irregular heart rate, peripheral edema, lightheadedness, RESPIRATORY: Absent: cough, shortness of breath , dyspnea with exertion, orthopnea, wheezing, stridor, hemoptysis GASTROINTESTINAL: Absent: abdominal pain, abdominal distension, nausea, vomiting, diarrhea, constipation, melena, hematochezia GENITOURINARY: Absent: dysuria, frequency, urgency, hesitancy, hematuria, flank pain, genital pain MUSCULOSKELETAL: Absent: myalgia, arthralgia, joint swelling, back pain, neck pain SKIN: Absent: rash, itching, pallor HEMATOLOGIC/IMMUNOLOGIC: Absent: easy bleeding, easy bruising, lymphadenopathy, frequent infections ENDOCRINE: Absent: unexplained weight gain, unexplained weight loss, heat intolerance, cold intolerance NEUROLOGIC: Absent: headache, focal weakness or paresthesias, dizziness, unsteady gait, seizure, mental status changes, bladder or bowel incontinence PSYCHIATRIC: anxiety Absent: depression, suicidal or homicidal ideation, hallucinations. PHYSICAL EXAMINATION Vital Signs - 24 hr 01/12/19 01/12/19 01/12/19 13:27 14:30 17:27 Temperature 98.0 F 99.2 F Pulse Rate 91 H Pulse Rate [ 85 Right Radial] Respiratory 22 H Rate Blood Pressure 80/62 L Blood Pressure 102/68 101/59 L [Right Arm] O2 Sat by Pulse 99 98 Oximetry (%) 01/12/19 19:27 Temperature Pulse Rate Pulse Rate [ 92 H Right Radial] Respiratory 20 Rate Blood Pressure Blood Pressure 102/61 [Right Arm] O2 Sat by Pulse 97 Oximetry (%) GENERAL: Awake, alert, and fully oriented, in no acute distress. HEAD: Normal with no signs of trauma. EYES: Pupils equal, round and reactive to light, extraocular movements intact, sclera anicteric, conjunctiva clear. No lid lag. EARS, NOSE, THROAT: Ears normal, nares patent, oropharynx clear without exudates. Moist mucous membranes. NECK: Normal range of motion, supple without lymphadenopathy, JVD, or masses. LUNGS: Breath sounds equal, clear to auscultation bilaterally. No wheezes, and no crackles. No accessory muscle use. HEART: Regular rate and rhythm, normal S1 and S2 with murmur. ABDOMEN: Soft, nontender, not distended, normoactive bowel sounds, no guarding, no rebound, no masses. MUSCULOSKELETAL: Fracture on left ankle. Normal range of motion at all joints. No bony deformities or tenderness. No CVA tenderness. UPPER EXTREMITIES: 2+ pulses, warm, well-perfused. No cyanosis. No clubbing. No peripheral edema. LOWER EXTREMITIES: 2+ pulses, warm, well-perfused. No calf tenderness. No peripheral edema. NEUROLOGICAL: Normal speech. Normal gait. PSYCHIATRIC: Cooperative. Good eye contact. Appropriate mood and affect. SKIN: Warm, dry, normal turgor, no rashes or lesions noted, normal capillary refill. Laboratory Results - last 24 hr 01/12/19 01/12/19 01/12/19 15:00 15:00 15:00 WBC 9.0 RBC 3.73 Hgb 11.6 Hct 34.7 MCV 93.0 MCH 31.0 MCHC 33.3 RDW 12.9 Plt Count 312 D MPV 9.0 Absolute Neuts (auto) 5.8 Neutrophils % 64.5 Lymphocytes % 27.0 Monocytes % 6.6 Eosinophils % 0.9 Basophils % 1.0 Nucleated RBC % 0 Sodium 136 Potassium 4.3 Chloride 100 Carbon Dioxide 26 Anion Gap 9 BUN 23.6 H Creatinine 1.2 Est GFR (CKD-EPI)AfAm 58.51 Est GFR (CKD-EPI)NonAf 50.48 Random Glucose 197 H Calcium 9.9 Magnesium 2.1 Total Bilirubin 0.4 AST 15 ALT 13 Alkaline Phosphatase 156 H Creatine Kinase 164 Creatine Kinase Index No Result Required. CK-MB (CK-2) < 1.0 Troponin I < 0.02 Total Protein 8.2 Albumin 3.8 Lipase 39 L ASSESSMENT/PLAN: 58 year old female with PMHx CAD (s/p 1x stent 2007 s/p defibrillator; 2x [place]), HTN, DM, HLD, CHF, COPD, DVT, PE (multiple last one in 2018) Admitted for Chest Pain. Chest Pain -EKG -Serial Troponins -Chest Xray -O2 PRN -Nitro PRN -Cardiology Consulted CHF -Continue Lasix 40mg PO BID -Continue Spironolactone 12.5mg Daily -Continue Entresto 24mg-26mg Tb HTN -Continue Carvedilol 3.125 q12H CAD Ankle Fracture -will treat pain -Continue Oxycodone 10mg PO q4h PRN DM -Continue Levimir 39 units SQ HS -Novolog sliding Scale COPD -Chronic -Not on any home meds. No acute Flare -Duoneb for SOB -O2 PRN -Consider Pulmnology DVT/PE -Currently on Xarelto FEN Will monitor and replenish as needed Diabetic low sodium diet DVT Prophylaxis -Currently on Xarelto Dispo -Inpatient OBS -Full Code Problem List - Problem (1) Chest pain Code(s): R07.9 - CHEST PAIN, UNSPECIFIED (2) Fracture of distal fibula Code(s): S82.839A - OTH FRACTURE OF UPPER AND LOWER END OF UNSP FIBULA, INIT (3) Impaired ambulation Code(s): R26.2 - DIFFICULTY IN WALKING, NOT ELSEWHERE CLASSIFIED (4) Congestive heart failure Code(s): I50.9 - HEART FAILURE, UNSPECIFIED (5) Diabetes mellitus Code(s): E11.9 - TYPE 2 DIABETES MELLITUS WITHOUT COMPLICATIONS Visit type - Emergency Visit Emergency Visit: Yes ED Registration Date: 01/12/19 Care time: The patient presented to the Emergency Department on the above date and was hospitalized for further evaluation of their emergent condition. - New Patient This patient is new to me today: Yes Date on this admission: 01/12/19 - Critical Care Critical Care patient: No
[2019-01-12] MEDS ORDERED: TIZANIDINE HCL 4 MG TABLET PO PRN (21:38)
[2019-01-12] MEDS ORDERED: PATIENT'S OWN MEDICATION (NON-FORMULARY) (Oxycodone Hcl [Oxycodone Hcl] 10 MG) PO PRN (21:38)
[2019-01-12] MEDS ORDERED: ACETAMINOPHEN 325 MG TABLET (FP) PO PRN (21:38)
[2019-01-12] MEDS ORDERED: INSULIN DETEMIR SQ SCH (21:45)
[2019-01-12] MEDS ORDERED: PATIENT'S OWN MEDICATION (NON-FORMULARY) (Insulin Lispro [Humalog] 100 UNIT) SQ SCH (21:45)
[2019-01-12] MEDS ORDERED: SODIUM PHOSPHATE/NA BIPHOS 133 ML ENEMA RC SCH (21:45)
[2019-01-12] MEDS ORDERED: NITROGLYCERIN SUBLINGUAL 1/150 0.4 MG TAB SL SCH (21:45)
[2019-01-12] MEDS ORDERED: SENNOSIDES 8.6MG TABLET (FP) PO SCH (22:00)
[2019-01-12] MEDS ORDERED: FUROSEMIDE 40 MG TABLET (FP) PO SCH (22:00)
[2019-01-12] MEDS ORDERED: PATIENT'S OWN MEDICATION (NON-FORMULARY) (Gabapentin [Neurontin] 600 MG) PO SCH (22:00)
[2019-01-12] MEDS ORDERED: PATIENT'S OWN MEDICATION (NON-FORMULARY) (Omeprazole 20 MG) PO SCH (22:00)
[2019-01-12] MEDS ORDERED: INSULIN (NOVOLOG) ASPART 100 UNITS/ML 10ML VIAL SQ SCH (22:00)
[2019-01-12] MEDS: CARVEDILOL 3.125 MG TABLET (FP) PO SCH (23:09)
[2019-01-12] MEDS: RIVAROXABAN 15 MG TABLET PO SCH (23:10)
[2019-01-12] MEDS: GABAPENTIN 300 MG CAPSULE (FP) PO SCH (23:10)
[2019-01-12] MEDS: oxyCODONE HCL 5 MG TABLET PO PRN (23:10)
[2019-01-12] MEDS ORDERED: ALBUTEROL SO4 2.5/IPRATROPIUM 0.5 INH SOL 3 ML VIAL.NEB. NEB PRN (23:25)
[2019-01-12] MEDS: SACUBITRIL/VALSARTAN 24 MG-26 MG TABLET PO SCH (23:32)
[2019-01-13 01:50] LABS: CHOLESTEROL 188 mg/dL (50-200); HDL CHOLESTEROL 33 mg/dL (40-60); MAGNESIUM 1.7 mg/dL (1.8-2.4); TRIGLYCERIDES 99 mg/dL (0-150)
[2019-01-13 02:05] VITALS: BMI 32.3
[2019-01-13] MEDS: oxyCODONE HCL 5 MG TABLET PO PRN ×3 (03:21→16:01)
[2019-01-13] MEDS: INSULIN SLIDING SCALE (NOVOLOG) 1 VIAL SQ SCH ×3 (06:16→17:31)
[2019-01-13] MEDS: FUROSEMIDE 40 MG TABLET (FP) PO SCH ×2 (06:16→14:52)
[2019-01-13 06:57] LABS: BASO % 0.4 % (0-2.0); EOS % 0.7 % (0-4.5); HEMATOCRIT 29.1 % (32.4-45.2); HEMOGLOBIN 10.1 GM/dL (10.7-15.3); LYMPH % 21.6 % (8-40); MCH 31.7 pg (25.7-33.7); MCHC 34.5 g/dl (32.0-36.0); MEAN CELL VOLUME 91.9 fl (80-96); MEAN PLT VOLUME 8.6 fl (7.5-11.1); MONO % 6.8 % (3.8-10.2); NEUT % 70.5 % (42.8-82.8); PLATELET COUNT 280 K/MM3 (134-434); RBC 3.17 M/mm3 (3.60-5.2); RDW 12.9 % (11.6-15.6); WHITE BLOOD COUNT 8.6 K/mm3 (4.0-10.0)
[2019-01-13] MEDS ORDERED: PANTOPRAZOLE 20 MG TABLET (FP) PO SCH (07:00)
[2019-01-13 07:40] LABS: PHOSPHOROUS 3.8 mg/dL (2.5-4.9)
[2019-01-13] MEDS ORDERED: INSULIN (LEVEMIR) 100 UNITS/ML UNITS SQ SCH (10:00)
[2019-01-13] MEDS ORDERED: CITALOPRAM HYDROBROMIDE 20 MG TABLET (FP) PO SCH (10:00)
[2019-01-13] MEDS ORDERED: POLYETHYLENE GLYCOL 3350 119 GM BTL PO SCH (10:00)
[2019-01-13] MEDS ORDERED: ASPIRIN 81 MG CHEWABLE TABLETS PO SCH (10:00)
[2019-01-13] MEDS: SACUBITRIL/VALSARTAN 24 MG-26 MG TABLET PO SCH (10:18)
[2019-01-13] MEDS: RIVAROXABAN 15 MG TABLET PO SCH (10:27)
[2019-01-13] MEDS: CARVEDILOL 3.125 MG TABLET (FP) PO SCH (10:27)
[2019-01-13] MEDS: GABAPENTIN 300 MG CAPSULE (FP) PO SCH (10:27)
[2019-01-13] MEDS ORDERED: MAGNESIUM SULF 50% (8.12 MEQ/2 ML-1 GM VIAL) IVPB ONE (10:55)
--- NOTE | 2019-01-13 13:32 | PN ---
Progress Note, Physician Chief Complaint: patient admitted for chest pain from [facility] over [place] for rehab bc of left ankle fracture she says she still has chest pain today 5 - Current Medication List Current Medications: Active Medications Acetaminophen (Tylenol -) 650 mg PO QID PRN PRN Reason: PAIN LEVEL 1-5 Albuterol/Ipratropium (Duoneb -) 1 amp NEB Q4H PRN PRN Reason: SHORTNESS OF BREATH Aspirin (Asa -) 81 mg PO DAILY [facility] Last Admin: 01/13/19 10:27 Dose: 81 mg Carvedilol (Coreg -) 3.125 mg PO BID [facility] Last Admin: 01/13/19 10:27 Dose: 3.125 mg Citalopram Hydrobromide (Celexa -) 20 mg PO DAILY [facility] Last Admin: 01/13/19 10:27 Dose: 20 mg Furosemide (Lasix -) 40 mg PO BIDLASIX [facility] Last Admin: 01/13/19 06:16 Dose: 40 mg Gabapentin (Neurontin -) 600 mg PO BID [facility] Last Admin: 01/13/19 10:27 Dose: 600 mg Insulin Aspart (Novolog Vial Sliding Scale -) 1 vial SQ [facility]; Protocol Last Admin: 01/13/19 12:37 Dose: 4 units Insulin Detemir (Levemir Vial) 39 units SQ DAILY [facility] Last Admin: 01/13/19 10:29 Dose: 39 units Nitroglycerin (Nitrostat -) 0.4 mg SL PRN [facility] Oxycodone HCl (Roxicodone -) 10 mg PO Q4HWA PRN PRN Reason: PAIN LEVEL 6-10 Last Admin: 01/13/19 10:26 Dose: 10 mg Pantoprazole Sodium (Protonix -) 20 mg PO BID@0700 [facility] Last Admin: 01/13/19 06:40 Dose: 20 mg Polyethylene Glycol (Miralax (For Daily Use) -) 17 gm PO DAILY [facility] Last Admin: 01/13/19 10:18 Dose: 17 grams Rivaroxaban (Xarelto) 15 mg PO DAILY [facility] Last Admin: 01/13/19 10:27 Dose: 15 mg Sacubitril/Valsartan (Entresto 24 Mg-26 Mg Tablet) 1 tab PO BID [facility] Last Admin: 01/13/19 10:18 Dose: 1 tab Senna (Senna -) 2 tab PO HS [facility] Last Admin: 01/12/19 23:09 Dose: 2 tab Sodium Phosphate (Fleet Adult Rectal Enema -) 118 ml RC PRN [facility] Tizanidine HCl (Tizanidine Hcl) 4 mg PO TID PRN PRN Reason: MUSCLE SPASMS Last Admin: 01/12/19 23:19 Dose: 4 mg - Objective Vital Signs: Vital Signs Temperature 98.5 F 01/13/19 06:00 Pulse Rate 87 01/13/19 06:00 Respiratory Rate 20 01/13/19 06:00 Blood Pressure 100/51 L 01/13/19 06:00 O2 Sat by Pulse Oximetry (%) 98 01/13/19 04:01 Constitutional: Yes: Calm Cardiovascular: Yes: Regular Rate and Rhythm, S1, S2 Respiratory: Yes: CTA Bilaterally Gastrointestinal: Yes: Normal Bowel Sounds, Soft Edema: No Neurological: Yes: Alert, Oriented Labs: CBC, BMP 01/13/19 06:22 01/12/19 15:00 Problem List - Problems (1) Chest pain Assessment/Plan: telemetry cardiology eval echo 2 CE negative elevated LDL noted on statin h/o cad aspirin statin entresto Code(s): R07.9 - CHEST PAIN, UNSPECIFIED (2) Fracture of distal fibula Assessment/Plan: PT ortho consult dvt ppx Code(s): S82.839A - OTH FRACTURE OF UPPER AND LOWER END OF UNSP FIBULA, INIT (3) Atrial fibrillation Assessment/Plan: xarelto Code(s): I48.91 - UNSPECIFIED ATRIAL FIBRILLATION (4) Diabetes mellitus Assessment/Plan: bgm sliding scale insulin [id number] Code(s): E11.9 - TYPE 2 DIABETES MELLITUS WITHOUT COMPLICATIONS Qualifiers: Diabetes mellitus type: type 2
--- NOTE | 2019-01-13 14:01 | CON.CARD ---
Consult Consult Specialty:: Cardiology Referred by:: Thomas Reason for Consultation:: cp - History of Present Illness Chief Complaint: cp History of Present Illness: 58 yo F with a PMHx of CAD (s/p 1x stent 2007 s/p defibrillator; 2x [place]), S/P AICD, HTN, DM, HLD, CHF EF 20% followed in [facility], breast cancer s/p masectomy, COPD, DVT, PE (multiple last one in 2018; failed eliquis and Coumadin with reoccurrence), atrial fibrillation, recent left ankle fracture following a mechanical fall who presents from [facility]. Presents to the emergency department with chest pain. The pain is retrosternal and back pain, sharp, non exertional, not pleuritic, continuous for the past day. No associated symptoms. No orthopnea, pnd or edema. - History Source History Provided By: Patient, Medical Record - Past Medical History ...LMP: 02/03/08 - Alcohol/Substance Use Hx Alcohol Use: No - Smoking History Smoking history: Unknown if ever smoked Have you smoked in the past 12 months: No Aproximately how many cigarettes per day: 0 Home Medications - Allergies Allergies/Adverse Reactions: Allergies Allergy/AdvReac Type Severity Reaction Status Date / Time prochlorperazine edisylate Allergy Intermediate Swelling Verified 12/28/18 22:11 [From Compazine] prochlorperazine maleate Allergy Intermediate Swelling Verified 12/28/18 22:11 [From Compazine] - Home Medications Home Medications: Ambulatory Orders Acetaminophen 650 mg PO QID PRN 01/12/19 Aspirin 81 mg PO DAILY 01/12/19 Carvedilol 3.125 mg PO BID 01/12/19 Citalopram Hydrobromide [Citalopram HBr] 20 mg PO DAILY 01/12/19 Furosemide 40 mg PO BID 01/12/19 Gabapentin [Neurontin] 600 mg PO BID 01/12/19 Insulin Detemir [Levemir Flextouch] 39 unit SQ DAILY 01/12/19 Insulin Lispro [Humalog] 100 unit SQ ASDIR 01/12/19 Magnesium Hydroxide [Milk of Magnesia] 400 mg PO DAILY PRN 01/12/19 Nitroglycerin [Nitrostat] 0.4 mg SL PRN 01/12/19 Omeprazole 20 mg PO BID 01/12/19 Oxycodone HCl 10 mg PO Q4HWA PRN 01/12/19 Polyethylene Glycol 3350 [Miralax (For Daily Use) -] 17 gm PO DAILY 01/12/19 Rivaroxaban [Xarelto] 15 mg PO DAILY 01/12/19 Sacubitril/Valsartan [Entresto 24 mg-26 mg Tablet] 1 each PO BID 01/12/19 Sennosides [Senna] 17.2 mg PO HS 01/12/19 Sodium Phosphate,Burt-Dibasic [Fleet Enema] 118 ml RC PRN 01/12/19 Spironolactone 25 mg PO DAILY 01/12/19 Tizanidine HCl 4 mg PO TID PRN 01/12/19 Family Disease History - Family Disease History Family Disease History: Heart Disease: Mother ([place]) Vital Signs: Vital Signs Temperature 98.6 F 01/13/19 10:00 Pulse Rate 92 H 01/13/19 10:00 Respiratory Rate 20 01/13/19 12:00 Blood Pressure 98/52 L 01/13/19 10:00 O2 Sat by Pulse Oximetry (%) 98 01/13/19 12:00 Constitutional: Yes: No Distress, Calm Eyes: Yes: Conjunctiva Clear, EOM Intact HENT: Yes: Normocephalic Neck: Yes: Trachea Midline Respiratory: Yes: CTA Bilaterally Gastrointestinal: Yes: Normal Bowel Sounds, Soft Cardiovascular: Yes: Regular Rate and Rhythm JVD: No Carotid Bruit: No PMI: Non-Displaced Heart Sounds: Yes: S1, S2 Murmur: Yes: Systolic Murmur Musculoskeletal: Yes: Other (ankle fx) Edema: No - Other Data Labs, Other Data: CBC, BMP 01/13/19 06:22 01/12/19 15:00 Troponin, BNP 01/12/19 01/13/19 01/13/19 15:00 01:10 01:10 Troponin I < 0.02 Cancelled < 0.02 01/13/19 06:25 Troponin I < 0.02 Troponin, BNP 01/12/19 01/13/19 01/13/19 15:00 01:10 01:10 Troponin I < 0.02 Cancelled < 0.02 01/13/19 06:25 Troponin I < 0.02 Imaging - Results Chest X-ray: Report Reviewed Cat Scan: Report Reviewed EKG: Report Reviewed Assessment/Plan 58 yo F with a PMHx of CAD (s/p 1x stent 2007 s/p defibrillator; 2x [place]), S/P AICD, HTN, DM, HLD, CHF (20% EF; followed by Dr. Guerrero in [facility] ), breast cancer s/p masectomy, COPD, DVT, PE (multiple last one in 2018; failed eliquis and Coumadin with reoccurrence), atrial fibrillation, recent left ankle fracture following a mechanical fall who [facility]. Presents to the emergency department with chest pain. Chest pain -atypical for angina. -would continue home medications. -CTA neg for PE or dissection. -would not pursue ischemia perry -dc telemetry.
--- NOTE | 2019-01-13 14:36 | EKG ---
Test Reason : Blood Pressure : / mmHG Vent. Rate : 085 BPM Atrial Rate : 085 BPM P-R Int : 166 ms QRS Dur : 102 ms QT Int : 424 ms P-R-T Axes : 051 -46 093 degrees QTc Int : 504 ms NORMAL SINUS RHYTHM LEFT ANTERIOR FASCICULAR BLOCK SEPTAL INFARCT (CITED ON OR BEFORE 18-DEC-2018) PROLONGED QT ABNORMAL ECG WHEN COMPARED WITH ECG OF 12-JAN-2019 13:56, QUESTIONABLE CHANGE IN INITIAL FORCES OF SEPTAL LEADS Confirmed by SIMON COLLADO MD ([id number]) on 01/13/2019 2:35:46 PM Referred By: NEHEMIAS RAMIREZ DR Confirmed By:SIMON COLLADO MD
--- NOTE | 2019-01-13 14:48 | ECHO ---
Name: LUPE YANG Exam:Adult Echocardiogram Study Date: 01/13/2019 09:11 AM Age: 58 yrs Reason For Study: Chest pain Height: 66 in Weight: 194 lb BSA: 2.0 m2 MMode/2D Measurements & Calculations IVSd: 0.85 cm Ao root diam: 3.3 cm LVIDd: 4.5 cm ACS: 2.0 cm LVIDs: 3.8 cm LVPWd: 2.2 cm EDV(Teich): 93.5 ml LVOT diam: 2.0 cm ESV(Teich): 61.4 ml RV S Tariq: 9.7 cm/sec Doppler Measurements & Calculations MV E max tariq: 71.8 cm/sec MV A max tariq: 101.9 cm/sec MV dec slope: 376.2 cm/sec2 MV E/A: 0.70 Ao V2 max: 97.7 cm/sec AI max tariq: 291.8 cm/sec Ao max P.8 mmHg AI max P.1 mmHg Ao V2 mean: 72.3 cm/sec AI dec slope: 246.1 cm/sec2 Ao mean P.3 mmHg Ao V2 VTI: 17.8 cm ASHLEY(I,D): 1.8 cm2 AI P1/2t: 347.3 msec ASHLEY(V,D): 1.7 cm2 LV V1 max P.1 mmHg SV(LVOT): 32.0 ml LV V1 mean P.64 mmHg LV V1 max: 52.1 cm/sec LV V1 mean: 37.5 cm/sec LV V1 VTI: 9.8 cm Med Peak E' Tariq: 8.1 cm/sec Med E/e': 8.9 Lat Peak E' Tariq: 6.9 cm/sec Lat E/e': 10.5 Procedure A complete two-dimensional transthoracic echocardiogram was performed (2D, M-mode, Doppler and color flow Doppler). Left Ventricle The left ventricle is normal in size. Ejection Fraction = 15-20%. Left ventricular systolic function is severely reduced. There is severe global hypokinesis of the left ventricle. Right Ventricle The right ventricle is not well visualized. Atria The left atrial size is normal. Right atrium not well visualized. Mitral Valve There is no mitral regurgitation noted. Tricuspid Valve There is trace tricuspid regurgitation. There was insufficient TR detected to calculate RV systolic p ressure. Aortic Valve No hemodynamically significant valvular aortic stenosis. No aortic regurgitation is present. Pulmonic Valve The pulmonic valve is not well visualized. Great Vessels The aortic root is normal size. Pericardium/Pleura There is no pericardial effusion. Interpretation Summary Left ventricular systolic function is severely reduced. There is severe global hypokinesis of the left ventricle. The right ventricle is not well visualized. There is trace tricuspid regurgitation. MD Rubin Mcgarry 01/13/2019 02:47 PM
[2019-01-13 15:25] VITALS: BP 108/54; PULSE 87; TEMP 98.9
--- NOTE | 2019-01-13 15:36 | DS ---
Physical Examination Vital Signs: Vital Signs Temperature 98.9 F 01/13/19 14:05 Pulse Rate 87 01/13/19 14:05 Respiratory Rate 20 01/13/19 14:05 Blood Pressure 108/54 L 01/13/19 14:05 O2 Sat by Pulse Oximetry (%) 98 01/13/19 12:00 Constitutional: Yes: Calm Cardiovascular: Yes: Regular Rate and Rhythm, S1, S2 Respiratory: Yes: CTA Bilaterally Gastrointestinal: Yes: Normal Bowel Sounds, Soft Labs: CBC, BMP 01/13/19 06:22 01/12/19 15:00 Discharge Summary Reason For Visit: CHEST PAIN Current Active Problems Atrial fibrillation (Acute) Chest pain (Acute) Hospital Course: HISTORY OF PRESENT ILLNESS: 58 yo F with a PMHx of CAD (s/p 1x stent 2007 s/p defibrillator; 2x TN), S/P AICD, HTN, DM, HLD, CHF (20% EF; followed by Dr. Guerrero in [facility] ), breast cancer s/p masectomy, COPD, DVT, PE (multiple last one in 2018; failed eliquis and Coumadin with reoccurrence), atrial fibrillation, recent left ankle fracture following a mechanical fall who presents from [facility] at [facility]. Presents to the emergency department with chest pain. Began at 9am in the left center chest with pressure in quality with radiation to the left arm and upper back. Denies radiation to the neck. Complaines of SOB and nausea, but denies coughing and vomiting. States she is compliant with her medications (currently on xarelto). Denies symptoms being similar to previous PE and ACS. 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 Condition: Improved - Instructions Referrals: Roel Weber MD [Staff Physician] - (ankle fracture follow up) Disposition: [facility] FACILITY - Home Medications Comprehensive Discharge Medication List: Ambulatory Orders Acetaminophen 650 mg PO QID PRN 01/12/19 Aspirin 81 mg PO DAILY 01/12/19 Carvedilol 3.125 mg PO BID 01/12/19 Citalopram Hydrobromide [Citalopram HBr] 20 mg PO DAILY 01/12/19 Furosemide 40 mg PO BID 01/12/19 Gabapentin [Neurontin] 600 mg PO BID 01/12/19 Insulin Detemir [Levemir Flextouch] 39 unit SQ DAILY 01/12/19 Insulin Lispro [Humalog] 100 unit SQ ASDIR 01/12/19 Magnesium Hydroxide [Milk of Magnesia] 400 mg PO DAILY PRN 01/12/19 Nitroglycerin [Nitrostat] 0.4 mg SL PRN 01/12/19 Omeprazole 20 mg PO BID 01/12/19 Oxycodone HCl 10 mg PO Q4HWA PRN 01/12/19 Polyethylene Glycol 3350 [Miralax (For Daily Use) -] 17 gm PO DAILY 01/12/19 Rivaroxaban [Xarelto] 15 mg PO DAILY 01/12/19 Sacubitril/Valsartan [Entresto 24 mg-26 mg Tablet] 1 each PO BID 01/12/19 Sennosides [Senna] 17.2 mg PO HS 01/12/19 Sodium Phosphate,[place]-Dibasic [Fleet Enema] 118 ml RC PRN 01/12/19 Spironolactone 25 mg PO DAILY 01/12/19 Tizanidine HCl 4 mg PO TID PRN 01/12/19
[2019-01-13] MEDS ORDERED: MAGNESIUM OXIDE 400 MG TABLET (FP) PO SCH (22:00)
--- NOTE | 2019-01-14 14:22 | EKG ---
Test Reason : Blood Pressure : / mmHG Vent. Rate : 086 BPM Atrial Rate : 086 BPM P-R Int : 166 ms QRS Dur : 092 ms QT Int : 430 ms P-R-T Axes : 054 -40 103 degrees QTc Int : 514 ms NORMAL SINUS RHYTHM LEFT AXIS DEVIATION POSSIBLE ANTEROSEPTAL INFARCT (CITED ON OR BEFORE 18-DEC-2018) NONSPECIFIC ST ABNORMALITY ABNORMAL ECG WHEN COMPARED WITH ECG OF 18-DEC-2018 03:07, NO SIGNIFICANT CHANGE WAS FOUND Confirmed by NAVEED SHARIF MD ([id number]) on 01/14/2019 2:21:32 PM Referred By: Confirmed By:NAVEED SHARIF MD
== END 2019-01-13 18:58 ==
LOC: JER 13:27 → JERBED 18:35 → J4W 22:14
PROVIDERS: ADMIT Family Medicine; ATTEND Family Medicine
PROC: 3E033GC Introduction of Other Therapeutic Substance into Peripheral Vein, Percutaneous Approach (ICD-10-PCS; principal; 2019-01-12)
PROC: 3E0337Z Introduction of Electrolytic and Water Balance Substance into Peripheral Vein, Percutaneous Approach (ICD-10-PCS; 2019-01-12)
PROC: 3E013VG Introduction of Insulin into Subcutaneous Tissue, Percutaneous Approach (ICD-10-PCS; 2019-01-12)
DX: R07.89 Other chest pain (principal); I11.0 Hypertensive heart disease with heart failure; E78.5 Hyperlipidemia, unspecified; I25.10 Atherosclerotic heart disease of native coronary artery without angina pectoris; I25.2 Old myocardial infarction; E11.9 Type 2 diabetes mellitus without complications; J44.9 Chronic obstructive pulmonary disease, unspecified; I48.91 Unspecified atrial fibrillation; D64.9 Anemia, unspecified; I50.9 Heart failure, unspecified; K21.9 Gastro-esophageal reflux disease without esophagitis; R26.2 Difficulty in walking, not elsewhere classified; S82.839D Other fracture of upper and lower end of unspecified fibula, subsequent encounter for closed fracture with routine healing; X58.XXXD Exposure to other specified factors, subsequent encounter; Z90.12 Acquired absence of left breast and nipple; Z86.718 Personal history of other venous thrombosis and embolism; Z86.711 Personal history of pulmonary embolism; Z85.3 Personal history of malignant neoplasm of breast; Z95.810 Presence of automatic (implantable) cardiac defibrillator; Z95.5 Presence of coronary angioplasty implant and graft; Z88.8 Allergy status to other drugs, medicaments and biological substances; Z79.82 Long term (current) use of aspirin; Z79.4 Long term (current) use of insulin; Z79.01 Long term (current) use of anticoagulants
CPT/HCPCS: 36415; 71045-TC-FY; 71275-TC; 80053; 80061; 82550; 82553; 82962; 83690; 83721; 83735; 84100; 84484; 85025; 85027; 93005; 93010; 93306-TC; 96372; 96374; 99283-25; G0378